=== PATIENT | female | born 1990 | race Caucasian/White ===

== ENCOUNTER 2017-11-06 07:32 | Emergency (ER) | payer OTHER ==
[2017-11-06 08:29] LABS: Absolute Lymphocytes (CBC) 2.7 K/uL (0.7-4.9); Absolute Monocytes 0.4 K/uL (0.1-1.3); Absolute Neutrophil 5.3 K/uL (1.8-8.0); Basophils % 1.2 % (0-1.3); Eosinophils % 2.5 % (0-4.4); Hematocrit 45.4 % (36.0-45.0); MCH 31.6 pg (27.0-35.0); MCV 92.1 fL (80-100); MPV 8.5 fL (7.6-11.3); Monocytes % 4.9 % (3.3-12.3); RBC Red Blood Cell Count 4.93 M/uL (3.86-4.86)
[2017-11-06 08:35] LABS: Protime INR 0.96
--- NOTE | 2017-11-06 08:50 | RAD REPORT ---
EXAM DESCRIPTION: RAD - Chest Single View - 11/06/2017 8:10 am CLINICAL HISTORY: CHEST PAIN Chest pain. COMPARISON: Chest Single View dated 02/21/2017; Chest Single View dated 09/09/2015; CHEST PA AND LAT 2 VIEW dated 04/03/2008; CHEST SINGLE VIEW dated 09/06/2007 FINDINGS: Portable technique limits examination quality. The lungs are grossly clear. The heart is normal in size. No displaced fractures. IMPRESSION: No acute intrathoracic process suspected.
[2017-11-06 09:14] LABS: ALT/SGPT 68 U/L (12-78); AST/SGOT 39 U/L (15-37); Albumin 3.8 g/dL (3.4-5.0); Alkaline Phosphatase 83 U/L (45-117); BUN Blood Urea Nitrogen 12 mg/dL (7-18); Bicarbonate 26 mmol/L (21-32); Bilirubin Direct 0.2 mg/dL (0-0.2); Bilirubin Total 0.8 mg/dL (0.2-1.0); Glucose Level 121 mg/dL (74-106); Magnesium 2.2 mg/dL (1.8-2.4); Protein, Total 7.3 g/dL (6.4-8.2); Sodium Level 138 mmol/L (136-145); Troponin (Emerg Dept Use Only) < 0.02 ng/mL (0.0-0.045)
--- NOTE | 2017-11-06 10:09 | EDPHYS ---
Physician Documentation [facility] Name: Lupe Cleaning Age: 27 yrs Sex: Female : 1990 Arrival Date: 11/06/2017 Time: 07:34 Bed 14 Private MD: out of town, doctor ED Physician Aubrey Jaime HPI: 11/06 09:00 This 27 yrs old Female presents to ER via Ambulatory with complaints of Chest pm1 Pain. 09:00 The patient or guardian reports chest pain that is located primarily in the anterior pm1 aspect of right upper chest. The pain does not radiate. Associated signs and symptoms: Pertinent positives: shortness of breath, Pertinent negatives: abdominal pain, cough, nausea, vomiting. The chest pain is described as sharp. Duration: The patient or guardian reports a single episode, that is still ongoing. Modifying factors: The symptoms are alleviated by nothing. the symptoms are aggravated by deep breath, palpation of area. Severity of pain: in the emergency department the pain is unchanged. The patient has not experienced similar symptoms in the past. The patient has not recently seen a physician. 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 - Social history:: Smoking status: Patient/guardian denies using tobacco. - Ebola Screening: : Patient negative for fever greater than or equal to 101.5 degrees Fahrenheit, and additional compatible Ebola Virus Disease symptoms. ROS: 09:00 Constitutional: Negative for fever, chills, and weight loss, Eyes: Negative for injury, pm1 pain, redness, and discharge, ENT: Negative for injury, pain, and discharge, Neck: Negative for injury, pain, and swelling. 09:00 Abdomen/GI: Negative for abdominal pain, nausea, vomiting, diarrhea, and constipation. 09:00 Back: Negative for injury and pain, : Negative for injury, bleeding, discharge, and swelling, MS/Extremity: Negative for injury and deformity, Skin: Negative for injury, rash, and discoloration, Neuro: Negative for headache, weakness, numbness, tingling, and seizure. 09:00 Cardiovascular: Positive for chest pain, Negative for edema, palpitations. 09:00 Respiratory: Positive for shortness of breath, Negative for wheezing. Exam: 09:00 Constitutional: This is a well developed, well nourished patient who is awake, alert, pm1 and in no acute distress. Head/Face: Normocephalic, atraumatic. Eyes: Pupils equal round and reactive to light, extra-ocular motions intact. Lids and lashes normal. Conjunctiva and sclera are non-icteric and not injected. Cornea within normal limits. Periorbital areas with no swelling, redness, or edema. ENT: Nares patent. No nasal discharge, no septal abnormalities noted. Tympanic membranes are normal and external auditory canals are clear. Oropharynx with no redness, swelling, or masses, exudates, or evidence of obstruction, uvula midline. Mucous membranes moist. Neck: Trachea midline, no thyromegaly or masses palpated, and no cervical lymphadenopathy. Supple, full range of motion without nuchal rigidity, or vertebral point tenderness. No Meningismus. 09:00 Cardiovascular: Regular rate and rhythm with a normal S1 and S2. No gallops, murmurs, or rubs. Normal PMI, no JVD. No pulse deficits. Respiratory: Lungs have equal breath sounds bilaterally, clear to auscultation and percussion. No rales, rhonchi or wheezes noted. No increased work of breathing, no retractions or nasal flaring. Abdomen/GI: Soft, non-tender, with normal bowel sounds. No distension or tympany. No guarding or rebound. No evidence of tenderness throughout. Back: No spinal tenderness. No costovertebral tenderness. Full range of motion. Skin: Warm, dry with normal turgor. Normal color with no rashes, no lesions, and no evidence of cellulitis. MS/ Extremity: Pulses equal, no cyanosis. Neurovascular intact. Full, normal range of motion. 09:00 Chest/axilla: Inspection: normal, Palpation: crepitus, is not appreciated, tenderness, of the anterior aspect of right upper chest, that totally reproduces the patient's complaints, Focal point reproducible chest pain to right upper chest. 09:00 Neuro: Orientation: is normal, Motor: moves all fours. Vital Signs: 07:54 BP 150 / 103; Pulse 90; Resp 18; Temp 97.2; Pulse Ox 100% on R/A; Weight 99.79 kg; ph Height 5 ft. 0 in. (152.40 cm); Pain 5/10; 08:00 BP 141 / 120; Pulse 88; Resp 19; Pulse Ox 98% ; jl7 08:59 BP 137 / 97; Pulse 77; Resp 18; Pulse Ox 97% on R/A; jl7 09:57 BP 143 / 95; Pulse 71; Resp 19; Pulse Ox 99% on R/A; rb1 10:54 BP 127 / 90; Pulse 70; Resp 17; Pulse Ox 99% on R/A; rb1 07:54 Body Mass Index 42.97 (99.79 kg, 152.40 cm) ph MDM: 07:44 Patient medically screened. pm1 10:07 Data reviewed: vital signs. Data interpreted: Pulse oximetry: on room air is 97 %. pm1 Interpretation: normal. Counseling: I had a detailed discussion with the patient and/or guardian regarding: the historical points, exam findings, and any diagnostic results supporting the discharge/admit diagnosis, lab results, radiology results, the need for outpatient follow up, to return to the emergency department if symptoms worsen or persist or if there are any questions or concerns that arise at home. 11/06 07:50 Order name: Basic Metabolic Panel; Complete Time: 09: pm11/06 07:50 Order name: CBC with Diff; Complete Time: 08:54 pm1 11/06 07:50 Order name: LFT's; Complete Time: 09: pm11/06 07:50 Order name: Magnesium; Complete Time: : pm11/06 07:50 Order name: PT-INR; Complete Time: 08:54 pm11/06 07:50 Order name: Ptt, Activated; Complete Time: 08:54 pm11/06 07:50 Order name: Troponin (emerg Dept Use Only); Complete Time: 09: pm11/06 07:50 Order name: XRAY Chest (1 view); Complete Time: 08:54 pm1 11/06 07:50 Order name: EKG; Complete Time: 07:51 pm1 11/06 07:50 Order name: Cardiac monitoring; Complete Time: 08:19 pm1 11/06 07:50 Order name: EKG - Nurse/Tech; Complete Time: 08:17 pm1 11/06 07:50 Order name: IV Saline Lock; Complete Time: 08:17 pm1 11/06 07:50 Order name: Labs collected and sent; Complete Time: 08:17 pm1 11/06 07:50 Order name: O2 Per Protocol; Complete Time: 08:17 pm1 11/06 07:50 Order name: O2 Sat Monitoring; Complete Time: 08:17 pm1 Administered Medications: No medications were administered Disposition: 11/07 07:06 Co-signature as Attending Physician, Aubrey Jaime MD I agree with the assessment and hong plan of care. Disposition: 11/06/17 10:08 Discharged to Home. Impression: Chest pain, unspecified. - Condition is Stable. - Discharge Instructions: Nonspecific Chest Pain. - Medication Reconciliation Form, Thank You Letter, Antibiotic Education, Prescription Opioid Use form. - Follow up: Emergency Department; When: As needed; Reason: Worsening of condition. Follow up: Private Physician; When: 2 - 3 days; Reason: Recheck today's complaints, Continuance of care, Re-evaluation by your physician. - Problem is new. - Symptoms have improved. Signatures: Dispatcher [employer] EDAubrey Seymour MD MD cha Hall, Patricia, RN RN Tonya Dumont RN RN Nawaf Corrales NP CANE WEIGHER pm1 Corrections: (The following items were deleted from the chart) 11/06 10:55 10:08 11/06/2017 10:08 Discharged to Home. Impression: Chest pain, unspecified. rb1 Condition is Stable. Forms are Medication Reconciliation Form, Thank You Letter, Antibiotic Education, Prescription Opioid Use. Follow up: Emergency Department; When: As needed; Reason: Worsening of condition. Follow up: Private Physician; When: 2 - 3 days; Reason: Recheck today's complaints, Continuance of care, Re-evaluation by your physician. Problem is new. Symptoms have improved. pm1
--- NOTE | 2017-11-06 10:09 | ER ---
Nurse's Notes [facility] Name: Lupe Cleaning Age: 27 yrs Sex: Female : 1990 Arrival Date: 11/06/2017 Time: 07:34 Bed 14 Private MD: out of town, doctor Diagnosis: Chest pain, unspecified Presentation: 11/06 07:52 Presenting complaint: Patient states: R sided chest pain that began last night, worse ph w/ movement and deep breathing, reports SOB, denies N/V. Transition of care: patient was not received from another setting of care. Onset of symptoms was November 06, 2017. Risk Assessment: Do you want to hurt yourself or someone else? Patient reports no desire to harm self or others. Initial Sepsis Screen: Does the patient meet any 2 criteria? No. Patient's initial sepsis screen is negative. Does the patient have a suspected source of infection? No. Patient's initial sepsis screen is negative. Care prior to arrival: None. 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 - Social history:: Smoking status: Patient/guardian denies using tobacco. - Ebola Screening: : Patient negative for fever greater than or equal to 101.5 degrees Fahrenheit, and additional compatible Ebola Virus Disease symptoms. Screenin:47 Abuse screen: Denies threats or abuse. Nutritional screening: No deficits noted. rb1 Tuberculosis screening: No symptoms or risk factors identified. Fall Risk None identified. Assessment: 07:47 General: Appears in no apparent distress. comfortable, obese, Behavior is calm, rb1 cooperative, Denies fever. Pain: Complains of pain in anterior aspect of right upper chest Pain does not radiate. Pain currently is 7 out of 10 on a pain scale. Pain began last night at 2300 Aggravated by deep breathing. Neuro: Level of Consciousness is awake, alert, obeys commands, Oriented to person, place, time, situation. Cardiovascular: Capillary refill < 3 seconds is > 3 seconds in bilateral fingers. Respiratory: Airway is patent Respiratory effort is even, unlabored, Respiratory pattern is regular, symmetrical. Respiratory: Reports shortness of breath. GI: No signs and/or symptoms were reported involving the gastrointestinal system. : No signs and/or symptoms were reported regarding the genitourinary system. Derm: Skin is pink, warm \T\ dry. 08:35 Reassessment: Patient appears in no apparent distress at this time. No changes from rb1 previously documented assessment. 09:30 Reassessment: Patient appears in no apparent distress at this time. Patient and/or rb1 family updated on plan of care and expected duration. Pain level reassessed. Patient is alert, oriented x 3, equal unlabored respirations, skin warm/dry/pink. Pt. is on her telephone. 10:30 Reassessment: Patient appears in no apparent distress at this time. No changes from rb1 previously documented assessment. Vital Signs: 07:54 BP 150 / 103; Pulse 90; Resp 18; Temp 97.2; Pulse Ox 100% on R/A; Weight 99.79 kg; ph Height 5 ft. 0 in. (152.40 cm); Pain 5/10; 08:00 BP 141 / 120; Pulse 88; Resp 19; Pulse Ox 98% ; jl7 08:59 BP 137 / 97; Pulse 77; Resp 18; Pulse Ox 97% on R/A; jl7 09:57 BP 143 / 95; Pulse 71; Resp 19; Pulse Ox 99% on R/A; rb1 10:54 BP 127 / 90; Pulse 70; Resp 17; Pulse Ox 99% on R/A; rb1 07:54 Body Mass Index 42.97 (99.79 kg, 152.40 cm) ph ED Course: 07:34 Patient arrived in ED. sb2 07:34 out of town, doctor is Private Physician. sb2 07:44 Nawaf Harris NP is PHCP. pm1 07:44 Aubrey Jaime MD is Attending Physician. pm1 07:47 Patient has correct armband on for positive identification. Placed in gown. Bed in low rb1 position. Call light in reach. Side rails up X 1. monitoring specialist on. Pulse ox on. NIBP on. Warm blanket given. 07:47 Patient maintains SpO2 saturation greater than 95% on room air. rb1 07:50 Tonya Dumont, RN is Primary Nurse. rb1 07:54 Triage completed. ph 07:56 Arm band placed on. ph 08:07 X-ray completed. Portable x-ray completed in exam room. jr1 08:10 XRAY Chest (1 view) In Process Unspecified. EDMS 08:10 Inserted saline lock: 22 gauge in right antecubital area, using aseptic technique. rb1 Blood collected. 10:54 No provider procedures requiring assistance completed. IV discontinued, intact, rb1 bleeding controlled, No redness/swelling at site. Pressure dressing applied. Administered Medications: No medications were administered Outcome: 10:08 Discharge ordered by MD. pm1 10:54 Discharged to home ambulatory. rb1 10:54 Condition: stable 10:54 Discharge instructions given to patient, Instructed on discharge instructions, follow up and referral plans. Demonstrated understanding of instructions, follow-up care, Prescriptions given X none 10:55 Patient left the ED. rb1 Signatures: Dispatcher [employer] EDVT Brigida Sepulveda jr1 Omaira Ahn RN RN Tonya Dumont, RN RN rb1 Nawaf Harris, STEVIE MANAGER [employer] pm1 Marli Odell RN RN jl7 Coty Simons sb2
--- NOTE | 2017-11-06 12:20 | EKG ---
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
== END 2017-11-06 10:55 | disposition home or self-care (01) ==
LOC: ER 07:32
DX: R07.9 Chest pain, unspecified (principal); I10 Essential (primary) hypertension; E11.9 Type 2 diabetes mellitus without complications; E03.9 Hypothyroidism, unspecified
CPT/HCPCS: 36415; 71045; 80048; 80076; 83735; 84484; 85025; 85610; 85730; 93005; 99285

== ENCOUNTER 2018-10-07 13:52 | Emergency (ER) | payer OTHER ==
--- OUTSIDE RECORDS SUMMARY | 2018-10-07 13:53 | XMS REPORT ---
:1990 [facility] Address [address] [place] [address] Dr. Jimenez [address] [place] [id number] Care Team Providers Name Role Phone Unavailable Unavailable Unavailable Problems This patient has no known problems. Allergies, Adverse Reactions, Alerts This patient has no known allergies or adverse reactions. Medications This patient has no known medications.
--- OUTSIDE RECORDS SUMMARY | 2018-10-07 13:53 | XMS REPORT | Summary of Care ---
:1990 Author Organization [facility] Address [address] [place] [id number] Care Team Providers Name Role Phone Esperanza Baldwin MD Primary Care Provider Reason for Visit Reason Comments Refill Request Rx Concern/Question Encounter Details Date Type Department Care Team Description 09/30/2018 Telephone [facility] Internal Esperanza Baldwin, Refill Request; Rx Medicine- LC Concern/Question [facility] [address] [phone] Allergies Active Allergy Reactions Severity Noted Date Comments Diphenhydramine Hcl Swelling, Hypertension 10/21/2014 documented as of this encounter (statuses as of 10/01/2018) Medications Medication Sig Dispensed Refills Start Date End Date Status buPROPion XL Take 1 tablet by 90 tablet 1 02/19/2018 Active (WELLBUTRIN XL) 150 mouth daily. mg 24 hr tablet Insulin [place], Use as directed 2 Box 1 06/11/2018 Active Disposable, (PEN NEEDLE) 32 gauge x 5/32" NdleIndications: Controlled type 2 diabetes mellitus with complication, with long-term current use of insulin documented as of this encounter (statuses as of 10/01/2018) Active Problems Problem Noted Date Morbid obesity with body mass index of 40.0-49.9 12/18/2016 documented as of this encounter (statuses as of 10/01/2018) Immunizations Name Administration Dates Next Due Twinrix (hep a/hep b) 05/03/2018, 12/03/2017, 11/02/2017 05/03/2018 documented as of this encounter Social History Tobacco Use Types Packs/Day Years Used Date Never Smoker Smokeless Tobacco: Never Used Alcohol Use Drinks/Week oz/Week Comments Yes rare Sex Assigned at Date Recorded Not on file Job Start Date Occupation Industry Not on file Not on file Not on file Travel History Travel Start Travel End No recent travel history available. documented as of this encounter Last Filed Vital Signs Not on filedocumented in this encounter Plan of Treatment Date Type Specialty Care Team Description 11/06/2018 Office Visit Gastroenterology Willa Xiao [address] [facility] [id number] [place] [address] 01/13/2019 Office Visit Internal Medicine Esperanza Baldwin MD [address] [place] [phone] Health Maintenance Due Date Last Done Comments PNEUMOCOCCAL 0-64 YEARS COMBINED 02/23/1994 SERIES (1 of 1 - PPSV23) EYE EXAM 02/23/1998 VARICELLA VACCINES (1 of 2 - 13+ 02/23/2001 2-dose series) FOOT EXAM 02/23/2006 DTaP,Tdap,and Td Vaccines (1 - 02/23/2007 Tdap) PAP SMEAR 02/23/2009 INFLUENZA VACCINE 11/03/2018 HgA1C 03/26/2019 09/23/2018, 11/20/2017, 07/25/2017, Additional history exists CREATININE (SERUM) 05/04/2019 05/03/2018, 09/07/2017, 08/31/2017, Additional history exists LDL-C 09/24/2019 09/23/2018, 07/25/2017 URINE MICROALBUMIN 09/24/2019 09/23/2018 documented as of this encounter Results Not on filedocumented in this encounter Insurance Payer Benefit Plan / Subscriber ID Effective Phone Address Type Group Dates [facility] [facility] [id number] 2018-[address]se [address] [employer] [place] [employer] [place] [id number] [employer] [place] [place] [phone] [place], [place] [id number] documented as of this encounter
--- OUTSIDE RECORDS SUMMARY | 2018-10-07 13:54 | XMS REPORT | Summary of Care ---
:1990 Author Organization [facility] Address [address] [place] [address] Care Team Providers Name Role Phone Esperanza Baldwin MD Primary Care Provider Reason for Referral (Routine) Status Reason Specialty Diagnoses / Referred By Referred To Procedures Contact Contact Closed Obstetrics & Diagnoses Type 2 diabetes mellitus without complication, with long-term current use of insulin Chan Joshua, Gynecology Procedures CONSULT/REFERRAL HEALTH PROMOTION SPECIALIST DO Vivi Borges DR [address] [place] [phone] (Routine) Status Reason Specialty Diagnoses / Referred By Contact Referred To Contact Procedures Closed Surgery Diagnoses Type 2 diabetes mellitus without complication, with long-term current use of insulin Chan Joshua, Procedures CONSULT/REFERRAL GENERAL SURGERY DO Vivi Borges DR [address] [place] [phone] (Routine) Status Reason Specialty Diagnoses / Procedures Referred By Contact Referred To Contact Closed Ophthalmology Diagnoses Type 2 diabetes mellitus without complication, with long-term current use of insulin Chan Joshua, Procedures CONSULT/REFERRAL OPHTHALMOLOGY DO Vivi Borges DR [address] [place] [phone] Reason for Visit Reason Comments Follow-up 3 mo fu Encounter Details Date Type Department Care Team Description 09/23/2018 Office Visit [facility] Internal Jony Ibrahim DO [address] [place] [phone] Type 2 diabetes mellitus without complication, with long- term current use of insulin (Primary Dx); Medicine- LC Esperanza Baldwin MD [address] [facility] [phone] Essential hypertension; Multispecialty Ctr Type 2 diabetes mellitus without complication, without long-term current use of insulin; [address] [facility] [place]othy[place], [place] [address] Allergies Active Allergy Reactions Severity Noted Date Comments Diphenhydramine Hcl Swelling, Hypertension 10/21/2014 documented as of this encounter (statuses as of 10/02/2018) Medications Medication Sig Dispensed Refills Start Date End Date Status buPROPion XL Take 1 tablet 90 tablet 1 02/19/2018 Active (WELLBUTRIN XL) 150 by mouth mg 24 hr tablet daily. Insulin [place], Use as 2 Box 1 06/11/2018 Active Disposable, (PEN directed NEEDLE) 32 gauge x 5/32" NdleIndications: Controlled type 2 diabetes mellitus with complication, with long-term current use of insulin lisinopril 10 mg Take 2 tablets 90 tablet 7 10/01/2018 Active tabletIndications: by mouth Essential daily. hypertension metFORMIN 500 mg Take 2 tablets 120 tablet 12 10/01/2018 Active tabletIndications: by mouth 2 Type 2 diabetes (two) times mellitus without daily with complication, meals. without long-term current use of insulin Levothyroxine 100 Take 1 capsule 30 capsule 11 10/01/2018 Active mcg by mouth capsuleIndications: daily. Hypothyroidism, unspecified type SITagliptin 100 mg Take 1 tablet 30 tablet 5 10/01/2018 Active tabletIndications: by mouth Type 2 diabetes daily. mellitus without complication, with long-term current use of insulin Levothyroxine 100 Take 100 mcg 0 Discontinued mcg capsule by mouth 9 daily. metFORMIN 500 mg Take 2 tablets 120 tablet 12 01/30/2017 Discontinued tabletIndications: by mouth 2 9 Type 2 diabetes (two) times mellitus without daily with complication, meals. without long-term current use of insulin liraglutide 0.6 inject 0.6 mg 10 mL 2 07/27/2017 Discontinued mg/0.1 mL (18 mg/3 under the skin 9 mL) injection daily. zolpidem (AMBIEN) Take 1 tablet 60 tablet 0 09/11/2017 Discontinued 10 mg tablet by mouth at 9 bedtime. lisinopril 10 mg Take 2 tablets 90 tablet 7 06/11/2018 Discontinued tabletIndications: by mouth 9 Essential daily. hypertension documented as of this encounter (statuses as of 10/02/2018) Active Problems Problem Noted Date Morbid obesity with body mass index of 40.0-49.9 12/18/2016 documented as of this encounter (statuses as of 10/02/2018) Immunizations Name Administration Dates Next Due Twinrix [...] of this encounter Last Filed Vital Signs Vital Sign Reading Time Taken Comments Blood Pressure 157/94 09/23/2018 1:15 PM CDT Pulse 82 09/23/2018 1:10 PM CDT Temperature 36.8 C (98.3 F) 09/23/2018 1:10 PM CDT Respiratory Rate 18 09/23/2018 1:10 PM CDT Oxygen Saturation 98% 09/23/2018 1:10 PM CDT Inhaled Oxygen Concentration - - Weight 102.3 kg (225 lb 9.6 oz) 09/23/2018 1:10 PM CDT Height - - Body Mass Index 44.06 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 Checking sugars at home, high readings inthe 300s bc not taking her victoza, does not like the way it made her feel (weakness). Still taking the metformin Obesity - patient expresses severe distress regarding weight. States she has "tried everything" including various diets, juicing, more exercise and has only lost a few pounds at best. She is requestingreferral to bariatric surgery. Medications: Current Outpatient Medications Medication Sig Insulin [place], Disposable, (PEN NEEDLE) 32 gauge x 5/32" Ndle Use as directed lisinopril 10 mg tablet Take 2 tablets by mouth daily. buPROPion XL (WELLBUTRIN XL) 150 mg 24 hr tablet Take 1 tablet by mouth daily. zolpidem (AMBIEN) 10 mg tablet Take 1 tablet by mouth at bedtime. liraglutide 0.6 mg/0.1 mL (18 mg/3 mL) injection inject 0.6 mg under the skin daily. metFORMIN 500 mg tablet Take 2 tablets by mouth 2 (two) times daily with meals. Levothyroxine 100 mcg capsule Take 100 mcg by mouth daily. PMHx: Past Medical History: Diagnosis Date Cirrhosis Diabetes mellitus Hyperlipidemia Hypertension well controlled Sleep apnea Thyroid disease ROS: Constitutional: no change in weight CV: denies CP, chest pressure Resp: denies SOB +PHILLIPS GI: denies abdominal pain, n/v, diarrhea, or constipation : denies dysuria, hematuria PE: Vitals: 09/23/18 1310 09/23/18 1315 BP: (!) 159/96 (!) 157/94 Pulse: 82 Resp: 18 Temp: 36.8 C (98.3 F) TempSrc: Tympanic SpO2: 98% Weight: 225 lb 9.6 oz (102.3 kg) General: patient alert and in no acute distress. obese Eyes: PERRL and EOMI Neck: supple Cardiovascular: Heart regular, rate, rhythm, no murmurs; no edema Respiratory: clear to auscultation bilaterally, no respiratory distress Abdomen: abdomen soft, non-tender, non-distended, +BS Skin: intact and warm, dry Neuro: no focal deficits Psych: cooperative and mood/affect normal Sensory exam of the foot is normal. Monofilament exam with sensation Right: 5/ 5. Lesions absent Ulcers Absent Peripheral pulses present 2+. Chart Review (Labs / Radiology): Reviewed Assessment / Plan: Lupe Cleaning is a 28 year old female presents to clinic today for: Type 2 diabetes mellitus without complication, with long-term current use of insulin (primary encounter diagnosis) Comment: patient meets criteria for bariatric surgery, would like to discuss w surgeon Plan: GLYCOSYLATED HEMOGLOBIN (A1C), LIPID PANEL (44891)(TOTAL CHOLESTEROL, TRIGLYCERIDES, HDL), MICROALBUMIN URINE, CONSULT/REFERRAL OPHTHALMOLOGY, CONSULT/REFERRAL GENERAL SURGERY, CONSULT/REFERRAL HEALTH PROMOTION SPECIALIST, Continue metformin D/c victoza Start januvia Essential hypertension Comment: patient to check BP at home and bring log Plan: lisinopril 10 mg tablet Hypothyroidism, unspecified type Comment: recheck TSH at [facility] Plan: Levothyroxine 100 mcg capsule Follow-up: 3 months Esperanza Baldwin MD 09/23/2018 1:40 PM Phoebe Todd - 09/23/2018 1:30 PM CDT Lupe Cleaning is a 28 year old female seen for a follow up visit; patient has Patient Active Problem List Diagnosis Morbid obesity with body mass index of 40.0-49.9 Chief Complaint Patient presents with Follow-up 3 mo fu Level of pain 6/10 Location of pain back Appearance: healthy,alert,cooperative. This patient is accompanied in the office by her self. Medications and allergies reviewed with patient by provider. Phoebe Gaffney 09/23/2018 1:10 PM documented in this encounter Plan of Treatment Date Type Specialty Care Team Description 11/06/2018 Office Visit Gastroenterology Willa Xiao [address] [facility] [address] [place] [address] [phone] 01/13/2019 Office Visit Internal Medicine Esperanza Baldwin MD [address] [place] [phone] Health Maintenance Due Date Last Done Comments [...] 09/23/2018 documented as of this encounter Results MICROALBUMIN URINE (09/23/2018 2:26 PM CDT) CREAT U 153.1 mg/dL [facility] MICROALB U 9 0 - 45 ug/mL [facility] MICROAL/CR 664 0-3,500 ug/mmol [facility] creatinine SERVICES Specimen Urine - URINE, CLEAN CATCH Performing Organization Address City/[facility]/Zipcode Phone Number [facility] CLIA: [id number], [address] [place] [address] [facility] LIPID PANEL (47892)(TOTAL CHOLESTEROL, TRIGLYCERIDES, HDL) (09/23/2018 2:25 PM CDT) CHOL 203 (H) 120 - 200 [facility] mg/dL [facility] HDL 27 (L) >50 mg/dL [facility] HDLC RATIO 7.5 (H) <=4.5 [facility] TRIG 405 (H) 30 - 170 mg/dL [facility] LDL CHOL Comment: Unable to <=160 mg/dL [facility] calculate LDL due to [facility] elevated triglyceride [facility] level greater than 400 mg/dL. VLDL 81 (H) 5 - 60 mg/dL [facility] Specimen Blood - ARM, LEFT Performing Organization Address City/State/Zipcode Phone Number [facility] CLIA: [id number], [address] [place] [address] [facility] HEMOGLOBIN (A1C) (09/23/2018 2:25 PM CDT) HGB A1C 8.7 (H) 4.0 - 6.0 % NGSP [facility] Specimen Blood - ARM, LEFT Performing Organization Address City/State/Zipcode Phone Number [facility] CLIA: [id number], [address] [place] [address] SERVICES-[facility] documented in this encounter Visit Diagnoses Diagnosis Type 2 diabetes mellitus without complication, with long-term current use of insulin - Primary Essential hypertension Unspecified essential hypertension Type 2 diabetes mellitus without complication, without long-term current use of insulin Hypothyroidism, unspecified type documented in this encounter Insurance Payer Benefit Plan / Subscriber ID Effective Phone Address Type Group Dates [facility] [id number] 2018-Akhil [address] [facility] CHILDRENS HEALTH PLAN MOM nt [id number] HEALTH PLAN [facility] [phone] [place], [place] [address] documented as of this encounter
--- OUTSIDE RECORDS SUMMARY | 2018-10-07 13:54 | XMS REPORT | Summary of Care ---
:[address] [facility] Address [address] [place] [address] Care Team Providers Name Role Phone Esperanza Baldwin MD Primary Care Provider Reason for Visit Reason Comments Rx Concern/Question Encounter Details Date Type Department Care Team Description 10/03/2018 Telephone [facility] Internal Esperanza Baldwin MD Rx Concern/Question Medicine- Multispecialty [address] [place] [phone] [place] [phone] Allergies Active Allergy Reactions Severity Noted Date Comments Diphenhydramine Hcl Swelling, Hypertension 10/21/2014 documented as of this encounter (statuses as of 10/03/2018) Medications Medication Sig Dispensed Refills Start Date End Date Status buPROPion XL Take 1 tablet by 90 tablet 1 02/19/2018 Active (WELLBUTRIN XL) 150 mg mouth daily. 24 hr tablet Insulin [place], Use as directed 2 Box 1 06/11/2018 Active Disposable, (PEN NEEDLE) 32 gauge x 5/32" NdleIndications: Controlled type 2 diabetes mellitus with complication, with long-term current use of insulin lisinopril 10 mg Take 2 tablets by 90 tablet 7 10/01/2018 Active tabletIndications: mouth daily. Essential hypertension metFORMIN 500 mg Take 2 tablets by 120 tablet 12 10/01/2018 Active tabletIndications: mouth 2 (two) Type 2 diabetes times daily with mellitus without meals. complication, without long-term current use of insulin Levothyroxine 100 mcg Take 1 capsule by 30 capsule 11 10/01/2018 Active capsuleIndications: mouth daily. Hypothyroidism, unspecified type SITagliptin 100 mg Take 1 tablet by 30 tablet 5 10/01/2018 Active tabletIndications: mouth daily. Type 2 diabetes mellitus without complication, with long-term current use of insulin documented as of this encounter (statuses as of 10/03/2018) Active Problems Problem Noted Date Morbid obesity with body mass index of 40.0-49.9 12/18/2016 documented as of this encounter (statuses as of 10/03/2018) Immunizations Name Administration Dates Next Due Twinrix [...] 11/06/2018 Office Visit Gastroenterology Willa Xiao [address] [facility] [id number] [place], [place] [phone] 01/13/2019 Office Visit Internal Medicine Esperanza Baldwin MD [address] [place] [phone] Health Maintenance Due Date Last Done Comments PNEUMOCOCCAL 0-64 YEARS COMBINED 02/23/1994 SERIES (1 of 1 - PPSV23) EYE EXAM 02/23/1998 VARICELLA VACCINES (1 of 2 - 13+ 02/23/2001 2-dose series) DTaP,Tdap,and Td Vaccines (1 - 02/23/2007 Tdap) PAP SMEAR 02/23/2009 INFLUENZA VACCINE 11/03/2018 HgA1C 03/26/2019 09/23/2018, 11/20/2017, 07/25/2017, Additional history exists CREATININE (SERUM) 05/04/2019 05/03/2018, 09/07/2017, 08/31/2017, Additional history exists FOOT EXAM 09/24/2019 09/23/2018, 09/23/2018 LDL-C 09/24/2019 09/23/2018, 07/25/2017 URINE MICROALBUMIN 09/24/2019 09/23/2018 documented as of this encounter Results Not on filedocumented in this encounter Insurance Payer Benefit Plan / Subscriber ID Effective Phone Address Type Group Dates [address] [facility] [id number] 2018-Akhil [address] CH[address] Chantelle [facility] HEALTH PLAN MOM nt [id number] HEALTH PLAN [phone] [place], [place] [address] documented as of this encounter
--- OUTSIDE RECORDS SUMMARY | 2018-10-07 13:54 | XMS REPORT | Summary of Care ---
:1990 Author Organization [facility] Address [address] [place] [address] Care Team Providers Name Role Phone Esperanza Baldwin MD Primary Care Provider Reason for Visit Reason Comments Rx Concern/Question Assessment Encounter Details Date Type Department Care Team Description 10/07/2018 Telephone [facility] Internal Esperanza Baldwin, Rx Concern/ Question; Medicine- LC Assessment Multispecialty Ctr [address] [phone] Allergies Active Allergy Reactions Severity Noted Date Comments Diphenhydramine Hcl Swelling, Hypertension 10/21/2014 documented as of this encounter (statuses as of 10/07/2018) Medications Medication Sig Dispensed Refills Start Date End Date Status buPROPion XL Take 1 tablet by 90 tablet 1 02/19/2018 Active (WELLBUTRIN XL) 150 mg mouth daily. 24 hr tablet Insulin [place], Use as directed 2 Box 1 06/11/2018 [...] as of this encounter (statuses as of 10/07/2018) Active Problems Problem Noted Date Morbid obesity with body mass index of 40.0-49.9 12/18/2016 documented as of this encounter (statuses as of 10/07/2018) Immunizations Name Administration Dates Next Due Twinrix [...] 11/06/2018 Office Visit Gastroenterology Willa Xiao 301 [facility] [id number] [place], [place] [phone] 01/13/2019 Office Visit Internal Medicine Esperanza Baldwin MD [address] [place] [phone] Health Maintenance Due Date Last Done Comments [...] Effective Phone Address Type Group Dates CHIP [address] [facility] [id number] 2018-Akhil [address] CHIP [facility] HEALTH PLAN MOM nt [phone] HEALTH PLAN [phone] [place], [place] [address] documented as of this encounter
--- OUTSIDE RECORDS SUMMARY | 2018-10-07 13:54 | XMS REPORT | Summary of Care ---
:1990 Author Organization [facility] Address [address] [place] [address] Care Team Providers Name Role Phone Esperanza Baldwin MD Primary Care Provider Reason for Referral (Routine) Status Reason Specialty Diagnoses / Referred By Referred To Procedures Contact Contact Closed Obstetrics & Diagnoses Type 2 diabetes mellitus without complication, with long-term current use of insulin Chan Joshua, Gynecology Procedures CONSULT/REFERRAL BEET WORKER DO Vivi Borges DR [address] [place] [phone] (Routine) Status Reason Specialty Diagnoses / Referred By Contact Referred To Contact Procedures Closed Surgery Diagnoses Type 2 diabetes mellitus without complication, with long-term current use of insulin Chan Joshua, Procedures CONSULT/REFERRAL GENERAL SURGERY DO Vivi Borges DR [address] [place] [phone] (Routine) Status Reason Specialty Diagnoses / Procedures Referred By Contact Referred To Contact Closed Ophthalmology Diagnoses Type 2 diabetes mellitus without complication, with long-term current use of insulin Chan Joshua, Procedures CONSULT/REFERRAL OPHTHALMOLOGY DO Vivi Borges DR [address] [place] [phone] Reason for Visit Reason Comments Follow-up 3 mo fu Encounter Details Date Type Department Care Team Description 09/23/2018 Office Visit [facility] Internal Jony Ibrahim DO [address] [place] [phone] Type 2 diabetes mellitus without complication, with long- term current use of insulin (Primary Dx); Medicine- LC Esperanza Baldwin MD [address] [facility] [place] [phone] Essential hypertension; Multispecialty Ctr Type 2 diabetes mellitus without complication, without long-term current use of insulin; [address] [facility] Hypothyroidism, [place] [address] Allergies Active Allergy Reactions Severity Noted Date Comments Diphenhydramine Hcl Swelling, Hypertension 10/21/2014 documented as of this encounter (statuses as of 10/02/2018) Medications Medication Sig Dispensed Refills Start Date End Date Status buPROPion XL Take 1 tablet 90 tablet 1 02/19/2018 Active (WELLBUTRIN XL) 150 by mouth mg 24 hr tablet daily. 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 Progress Notes Esperanza [...] Medications: Current Outpatient Medications Medication Sig Insulin [place], Disposable, (PEN NEEDLE) 32 gauge x 5/32" [...] surgeon Plan: GLYCOSYLATED HEMOGLOBIN (A1C), LIPID PANEL (29425)(TOTAL CHOLESTEROL, TRIGLYCERIDES, HDL), MICROALBUMIN URINE, CONSULT/REFERRAL OPHTHALMOLOGY, CONSULT/REFERRAL GENERAL SURGERY, CONSULT/REFERRAL BEET WORKER, Continue metformin D/c victoza Start januvia Essential [...] 11/06/2018 Office Visit Gastroenterology Willa Xiao 301 [facility] [id number] [place] [address] [phone] 01/13/2019 Office Visit Internal Medicine Esperanza Baldwin MD [address] [place] [phone] Health Maintenance Due Date Last Done Comments [...] 2:26 PM CDT) CREAT U 153.1 mg/dL [facility] MICROALB U 9 0 - 45 ug/mL [facility] MICROAL/CR 664 0-3,500 ug/mmol [facility] creatinine SERVICES Specimen Urine - URINE, CLEAN CATCH Performing Organization Address City/[facility]/Zipcode Phone Number [facility] CLIA: [id number], [address] [place] [address] [facility] LIPID PANEL (02066)(TOTAL CHOLESTEROL, TRIGLYCERIDES, HDL) (09/23/2018 2:25 PM CDT) CHOL 203 (H) 120 - 200 [facility] mg/dL [facility] HDL 27 (L) >50 mg/dL [facility] HDLC RATIO 7.5 (H) <=4.5 [facility] TRIG 405 (H) 30 - 170 mg/dL [facility] LDL CHOL Comment: Unable to <=160 mg/dL [facility] calculate LDL due to [facility] elevated triglyceride [facility] level greater than 400 mg/dL. VLDL 81 (H) 5 - 60 mg/dL [facility] Specimen Blood - ARM, LEFT Performing Organization Address City/State/Zipcode Phone Number [facility] CLIA: [id number], [address] [place] [address] [facility] HEMOGLOBIN (A1C) (09/23/2018 2:25 PM CDT) HGB A1C 8.7 (H) 4.0 - 6.0 % NGSP [facility] Specimen Blood - ARM, LEFT Performing Organization Address City/State/Zipcode Phone Number [facility] CLIA: [id number], [address] [place] [address] SERVICES-[facility] documented in this encounter Visit Diagnoses Diagnosis Type 2 diabetes mellitus without complication, with long-term current use of insulin - Primary Essential hypertension Unspecified essential hypertension Type 2 diabetes mellitus without complication, without long-term current use of insulin Hypothyroidism, unspecified type documented in this encounter Insurance Payer Benefit Plan / Subscriber ID Effective Phone Address Type Group Dates [facility] [id number] 2018-Akhil [address] [facility] CHILDRENS HEALTH PLAN MOM nt [id number] HEALTH PLAN [facility] [address] [place], [place] [address] documented as of this encounter
--- OUTSIDE RECORDS SUMMARY | 2018-10-07 13:54 | XMS REPORT | Summary of Care ---
:1990 Author Organization [facility] Address [address] [place] [address] Care Team Providers Name Role Phone Esperanza Baldwin MD Primary Care Provider Reason for Visit Reason Comments Rx Concern/Question Encounter Details Date Type Department Care Team Description 10/03/2018 Telephone [facility] Internal Esperanza Baldwin MD Rx Concern/Question Medicine- Multispecialty [address] [place] [phone] [place] [phone] Allergies Active Allergy Reactions Severity Noted Date Comments Diphenhydramine Hcl Swelling, Hypertension 10/21/2014 documented as of this encounter (statuses as of 10/07/2018) Medications Medication Sig Dispensed Refills Start Date End Date Status buPROPion XL Take 1 tablet by 90 tablet 1 02/19/2018 Active (WELLBUTRIN XL) 150 mg mouth daily. 24 hr tablet Insulin [place], Use as directed 2 Box 1 06/11/2018 [...] 11/06/2018 Office Visit Gastroenterology Willa Xiao 301 [facility] [id number] [place], [place] [phone] 01/13/2019 Office Visit Internal Medicine Esperanza Baldwin MD [address] [place] [phone] Health Maintenance Due Date Last Done Comments [...] Phone Address Type Group Dates [facility] [facility] [id number] 2018-Akhil Christie [address] CH[address] Ch[address]elle [facility] HEALTH PLAN MOM nt [id number] HEALTH PLAN [address] [place], [place] [address] documented as of this encounter
[2018-10-07] MEDS ORDERED: HYDROCODONE/APAP 5/325 MG TAB ONE (16:59)
--- NOTE | 2018-10-07 17:00 | RAD REPORT ---
EXAM DESCRIPTION: RAD - Hip Right 2 View - 10/07/2018 4:30 pm CLINICAL HISTORY: Right hip pain FINDINGS: No fracture or dislocation is seen. Mild osteoarthritis involves the right hip If patient continues have symptoms to suggest an occult fracture then MRI would be recommended
--- NOTE | 2018-10-07 17:08 | ER ---
Nurse's Notes [facility] Name: Lupe Yeager Age: 28 yrs Sex: Female : 1990 Arrival Date: 10/07/2018 Time: 13:55 Bed Treatment Private MD: Diagnosis: Pain in right hip Presentation: 10/07 14:10 Presenting complaint: Right hip and groin pain after fall from standing 2 days ago. hb Denies other injuries. Transition of care: patient was not received from another setting of care. Onset of symptoms was October 05, 2018. Risk Assessment: Do you want to hurt yourself or someone else? Patient reports no desire to harm self or others. Initial Sepsis Screen: Does the patient meet any 2 criteria? No. Patient's initial sepsis screen is negative. Does the patient have a suspected source of infection? No. Patient's initial sepsis screen is negative. Care prior to arrival: None. 14:10 Method Of Arrival: Ambulatory hb 14:10 Acuity: NORMA 4 hb Historical: - Allergies: 14:11 Benadryl; hb - Immunization history:: Adult Immunizations up to date. - Ebola Screening: : Patient denies travel to an Ebola-affected area in the 21 days before illness onset. Screenin:53 Abuse screen: Denies threats or abuse. Denies injuries from another. Nutritional aj1 screening: No deficits noted. Tuberculosis screening: No symptoms or risk factors identified. 18:13 Fall Risk Fall in past 12 months (25 points). No secondary diagnosis (0 pts). No IV (0 aj1 pts). Ambulatory Aid- Crutches/Cane/Walker (15 pts). Gait- Normal/Bed Rest/Wheelchair (0 pts) Mental Status- Oriented to own ability (0 pts). Total Mccarty Fall Scale indicates Low Risk Score (25-44 pts). Family Present and informed to notify staff if they need to leave bedside. Assessment: 14:47 General: Appears in no apparent distress. uncomfortable, Behavior is calm, cooperative, aj1 appropriate for age. Pain: Complains of pain in right hip Pain does not radiate. Pain currently is 8 out of 10 on a pain scale. Neuro: Level of Consciousness is awake, alert, obeys commands, Oriented to person, place, time, situation. Cardiovascular: Patient's skin is warm and dry. Respiratory: Airway is patent Respiratory effort is even, unlabored, Respiratory pattern is regular, symmetrical. GI: No signs and/or symptoms were reported involving the gastrointestinal system. : No signs and/or symptoms were reported regarding the genitourinary system. EENT: No signs and/or symptoms were reported regarding the EENT system. Derm: No signs and/or symptoms reported regarding the dermatologic system. Skin is pink, warm \T\ dry. normal. Musculoskeletal: Range of motion: limited in right hip. 15:45 Reassessment: Patient appears in no apparent distress at this time. No changes from aj1 previously documented assessment. Patient and/or family updated on plan of care and expected duration. Pain level reassessed. Patient is alert, oriented x 3, equal unlabored respirations, skin warm/dry/pink. 16:45 Reassessment: Patient appears in no apparent distress at this time. No changes from aj1 previously documented assessment. Patient and/or family updated on plan of care and expected duration. Pain level reassessed. Patient is alert, oriented x 3, equal unlabored respirations, skin warm/dry/pink. 17:15 Reassessment: Discharge pending getting crutches of correct height for patient. aj1 18:12 Reassessment: Patient appears in no apparent distress at this time. No changes from aj1 previously documented assessment. Patient and/or family updated on plan of care and expected duration. Pain level reassessed. Patient is alert, oriented x 3, equal unlabored respirations, skin warm/dry/pink. Vital Signs: 14:11 BP 165 / 85; Pulse 85; Resp 16; Temp 97.8; Pulse Ox 100% on R/A; Weight 99.79 kg; hb Height 4 ft. 11 in. (149.86 cm); Pain 8/10; 14:11 Body Mass Index 44.43 (99.79 kg, 149.86 cm) ED Course: 13:55 Patient arrived in ED. mr 14:11 Triage completed. hb 14:11 Arm band placed on. hb 14:47 Kendra Draper, RN is Primary Nurse. aj1 14:50 Lashay Rivera [facility]-C [facility]. kb 14:50 Epi Teran MD is Attending Physician. kb 14:53 Patient has correct armband on for positive identification. Bed in low position. Call aj1 light in reach. 14:53 No provider procedures requiring assistance completed. aj1 16:32 Hip Right 2 View XRAY In Process Unspecified. EDMS 18:12 Patient did not have IV access during this emergency room visit. Crutch training done. aj1 Administered Medications: 17:04 Drug: [place] (7.5 mg-325 mg) 1 tabs Route: PO; aj1 18:10 Follow up: Response: No adverse reaction; Pain is decreased aj1 Outcome: 17:07 Discharge ordered by . jordan 18:13 Discharged to home with crutches. aj1 18:13 Condition: good 18:13 Discharge instructions given to patient, Instructed on discharge instructions, follow up and referral plans. medication usage, Demonstrated understanding of instructions, follow-up care, medications, Prescriptions given X 2. 18:14 Patient left the ED. aj1 Signatures: Dispatcher [employer] EDMS Lashay Rivera, MILL MACHINIST-C KURTIS-Kendra Lucas, CHRISTIANO RN aj1 Monet Arredondo Heather, CHRISTIANO RN
--- NOTE | 2018-10-07 17:08 | EDPHYS ---
Physician Documentation [facility] Name: Lupe Yeager Age: 28 yrs Sex: Female : 1990 Arrival Date: 10/07/2018 Time: 13:55 Bed Treatment Private MD: ED Physician Epi Teran HPI: 10/07 16:43 This 28 yrs old Female presents to ER via Ambulatory with complaints of Hip kb Pain. 16:43 The patient or guardian reports pain. that occurred outdoors, sustained from a fall, kb while walking, There is no obvious deformity, The patient is able to self ambulate. The patient is able to bear their full body weight. The patient's discomfort radiates to the right femoral area. The patient was discovered at or immediately after the incident. The complaints affect the right hip. Onset: The symptoms/episode began/occurred 2 day(s) ago. Modifying factors: The symptoms are alleviated by nothing, the symptoms are aggravated by external rotation, weight bearing. Associated signs and symptoms: Loss of consciousness: the patient experienced no loss of consciousness, Pertinent positives: None. Pertinent negatives: None. Severity of symptoms: At their worst the symptoms were mild, moderate, in the emergency department the symptoms are unchanged. The patient has not experienced similar symptoms in the past. The patient has not recently seen a physician. Pt states she was stepping over a bucket and her foot went inside instead of over causing her to trip. States she landed on right hip. Has been able to ambulate, but has pain when doing so. Historical: - Allergies: 14:11 Benadryl; hb - Immunization history:: Adult Immunizations up to date. - Ebola Screening: : Patient denies travel to an Ebola-affected area in the 21 days before illness onset. ROS: 18:09 Constitutional: Negative for fever, chills, and weight loss, Cardiovascular: Negative kb for chest pain, palpitations, and edema, Respiratory: Negative for shortness of breath, cough, wheezing, and pleuritic chest pain, Abdomen/GI: Negative for abdominal pain, nausea, vomiting, diarrhea, and constipation, Back: Negative for injury and pain, Skin: Negative for injury, rash, and discoloration, Neuro: Negative for headache, weakness, numbness, tingling, and seizure. 18:09 MS/extremity: Positive for pain, tenderness, of the right hip. Exam: 18:10 Constitutional: This is a well developed, well nourished patient who is awake, alert, kb and in no acute distress. Head/Face: Normocephalic, atraumatic. ENT: Nares patent. No nasal discharge, no septal abnormalities noted. Tympanic membranes are normal and external auditory canals are clear. Oropharynx with no redness, swelling, or masses, exudates, or evidence of obstruction, uvula midline. Mucous membranes moist. Neck: Trachea midline, no thyromegaly or masses palpated, and no cervical lymphadenopathy. Supple, full range of motion without nuchal rigidity, or vertebral point tenderness. No Meningismus. Chest/axilla: Normal chest wall appearance and motion. Nontender with no deformity. No lesions are appreciated. Cardiovascular: Regular rate and rhythm with a normal S1 and S2. No gallops, murmurs, or rubs. Normal PMI, no JVD. No pulse deficits. Respiratory: Lungs have equal breath sounds bilaterally, clear to auscultation and percussion. No rales, rhonchi or wheezes noted. No increased work of breathing, no retractions or nasal flaring. Abdomen/GI: Soft, non-tender, with normal bowel sounds. No distension or tympany. No guarding or rebound. No evidence of tenderness throughout. Back: No spinal tenderness. No costovertebral tenderness. Full range of motion. Skin: Warm, dry with normal turgor. Normal color with no rashes, no lesions, and no evidence of cellulitis. Neuro: Awake and alert, GCS 15, oriented to person, place, time, and situation. Cranial nerves II-XII grossly intact. Motor strength 5/5 in all extremities. Sensory grossly intact. Cerebellar exam normal. Normal gait. 18:10 Musculoskeletal/extremity: Extremities: grossly normal except: noted in the right hip: pain, tenderness, ROM: intact in all extremities, Circulation is intact in all extremities. Sensation intact. Weight bearing: able to fully bear weight. Vital Signs: 14:11 BP 165 / 85; Pulse 85; Resp 16; Temp 97.8; Pulse Ox 100% on R/A; Weight 99.79 kg; hb Height 4 ft. 11 in. (149.86 cm); Pain 8/10; 14:11 Body Mass Index 44.43 (99.79 kg, 149.86 cm) MDM: 14:50 Patient medically screened. kb 16:42 Data reviewed: vital signs, nurses notes. Data interpreted: Pulse oximetry: on room air kb is 100 %. Interpretation: normal. ED course: awaiting radiologist's report. 17:04 Counseling: I had a detailed discussion with the patient and/or guardian regarding: the kb historical points, exam findings, and any diagnostic results supporting the discharge/admit diagnosis, radiology results, the need for outpatient follow up, a family practitioner, to return to the emergency department if symptoms worsen or persist or if there are any questions or concerns that arise at home. 10/07 14:58 Order name: Hip Right 2 View XRAY; Complete Time: 17:04 kb 10/07 17:08 Order name: Crutches; Complete Time: 18:10 kb Administered Medications: 17:04 Drug: [place] (7.5 mg-325 mg) 1 tabs Route: PO; aj1 18:10 Follow up: Response: No adverse reaction; Pain is decreased aj1 Disposition: 10/08 08:01 Co-signature as Attending Physician, Epi Teran MD I agree with the assessment and me plan of care. Disposition: 10/07/18 17:07 Discharged to Home. Impression: Pain in right hip. - Condition is Stable. - Discharge Instructions: Hip Pain. - Prescriptions for Cyclobenzaprine 10 mg Oral Tablet - take 1 tablet by ORAL route every 8 hours As needed; 21 tablet. Diclofenac Sodium 75 mg Oral Tablet, Delayed Release (E.C.) - take 1 tablet by ORAL route 2 times per day As needed; 30 tablet. - Medication Reconciliation Form, Thank You Letter, Antibiotic Education, Prescription Opioid Use form. - Follow up: Emergency Department; When: As needed; Reason: Worsening of condition. Follow up: Private Physician; When: 2 - 3 days; Reason: Recheck today's complaints, Continuance of care, Re-evaluation by your physician. Signatures: Dispatcher [employer] Lashay Moreno, TABITHA HULL-Kendra Lucas RN RN aj1 Shirlene Wiggins RN RN hb Appiah, William, MD MD wa Corrections: (The following items were deleted from the chart) 10/07 18:14 17:07 10/07/2018 17:07 Discharged to Home. Impression: Pain in right hip. Condition is aj1 Stable. Forms are Medication Reconciliation Form, Thank You Letter, Antibiotic Education, Prescription Opioid Use. Follow up: Emergency Department; When: As needed; Reason: Worsening of condition. Follow up: Private Physician; When: 2 - 3 days; Reason: Recheck today's complaints, Continuance of care, Re-evaluation by your physician. kb
== END 2018-10-07 18:14 | disposition home or self-care (01) ==
LOC: ER 13:52
DX: M25.551 Pain in right hip (principal); W18.09XA Striking against other object with subsequent fall, initial encounter; Y93.89 Activity, other specified; Y92.89 Other specified places as the place of occurrence of the external cause; Z88.8 Allergy status to other drugs, medicaments and biological substances
CPT/HCPCS: 99284

== ENCOUNTER 2019-10-23 18:26 | Emergency (ER) | payer OTHER ==
[2019-10-23 19:12] LABS: Absolute Lymphocytes (CBC) 4.1 K/uL (0.7-4.9); Basophils % 1.3 % (0-1.3); Hematocrit 44.4 % (36.0-45.0); Lymphocytes % 31.6 % (15.3-44.8); MPV 8.7 fL (7.6-11.3); RBC Red Blood Cell Count 4.86 M/uL (3.86-4.86)
[2019-10-23 19:26] LABS: Protime INR 0.97
[2019-10-23 19:34] LABS: ALT/SGPT 49 U/L (12-78); AST/SGOT 35 U/L (15-37); Albumin 3.8 g/dL (3.4-5.0); Alkaline Phosphatase 84 U/L (45-117); BUN Blood Urea Nitrogen 8 mg/dL (7-18); Bicarbonate 25 mmol/L (21-32); Bilirubin Direct 0.3 mg/dL (0-0.2); Bilirubin Total 1.6 mg/dL (0.2-1.0); Glucose Level 174 mg/dL (74-106); Magnesium 2.3 mg/dL (1.8-2.4); NT PRO-BNP 19 pg/mL (<125); Potassium 3.6 mmol/L (3.5-5.1); Protein, Total 7.4 g/dL (6.4-8.2); Sodium Level 138 mmol/L (136-145); Troponin (Emerg Dept Use Only) < 0.02 ng/mL (0.0-0.045)
--- NOTE | 2019-10-23 19:38 | RAD REPORT ---
EXAM DESCRIPTION: RAD - Chest Single View - 10/23/2019 7:06 pm CLINICAL HISTORY: CHEST PAIN COMPARISON: AP chest November 2017 TECHNIQUE: AP portable chest image was obtained 10/23/2019 7:06 pm . FINDINGS: Lung volumes are low. No peripheral mass consolidation. Interstitial markings are accentua merle by the low lung volumes. Heart size is prominent, accentuated by portable technique and low lung volumes. Vasculature within normal limits. No measurable pleural effusion and no pneumothorax. No acu te bony abnormality seen. No acute aortic findings suspected. IMPRESSION: No focal mass or consolidation. Low lung volumes accentuate lung markings.
--- NOTE | 2019-10-23 19:54 | EDPHYS ---
Physician Documentation [facility] Name: Lupe Yeager Age: 29 yrs Sex: Female : 1990 Arrival Date: 10/23/2019 Time: 18:30 Bed 14 Private MD: ED Physician Aubrey Jaime HPI: 10/22 18:37 This 29 yrs old Female presents to ER via Ambulatory with complaints of Chest jmm Pain. 18:37 The patient or guardian reports chest pain that is located primarily in the anterior [facility] chest wall. The pain does not radiate. Associated signs and symptoms: Pertinent positives:. The chest pain is described as sharp. Duration: The patient or guardian reports a single episode. This is a 29 year old female with a history of DM, HTN, hypothyroidism that presents to the ED with complaints of chest pain which has been ongoing for the past 4 days. Worsened with deep inspiration. Denies history of CAD. 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 - Social history:: Smoking status: unknown. ROS: 18:37 Constitutional: Negative for fever, chills, and weight loss. jmm 18:37 Respiratory: Negative for shortness of breath, cough, wheezing, and pleuritic chest pain, Abdomen/GI: Negative for abdominal pain, nausea, vomiting, diarrhea, and constipation. 18:37 Cardiovascular: Positive for chest pain. 18:37 All other systems are negative. Exam: 18:37 Constitutional: This is a well developed, well nourished patient who is awake, alert, jmm and in no acute distress. Head/Face: atraumatic. Eyes: EOMI, no conjunctival erythema appreciated ENT: Moist Mucus Membranes Neck: Trachea midline, Supple Cardiovascular: Regular rate and rhythm. No edema appreciated 18:37 Respiratory: Normal respirations, no respiratory distress appreciated Abdomen/GI: Non distended, soft Back: Normal ROM Skin: General appearance color normal MS/ Extremity: Moves all extremities, no obvious deformities appreciated, no edema noted to the lower extremities Neuro: Awake and alert, normal gait Psych: Behavior is normal, Mood is normal, Patient is cooperative and pleasant 18:37 Chest/axilla: Palpation: tenderness, that is moderate, that totally reproduces the patient's complaints. 19:34 ECG was reviewed by the Attending Physician. [facility] Vital Signs: 18:46 Pulse 78; Resp 16; Temp 97.9(O); Pulse Ox 99% on R/A; Weight 93.89 kg; Height 4 ft. 11 ls4 in. (149.86 cm); Pain 6/10; 19:30 BP 127 / 73; Pulse 84; Resp 18; Pulse Ox 98% on R/A; wh 20:30 BP 125 / 73; Pulse 84; Resp 18; Pulse Ox 97% on R/A; wh 18:46 Body Mass Index 41.81 (93.89 kg, 149.86 cm) ls4 MDM: 18:37 Patient medically screened. hong 19:51 Data reviewed: vital signs, nurses notes. Counseling: I had a detailed discussion with [facility] the patient and/or guardian regarding: the historical points, exam findings, and any diagnostic results supporting the discharge/admit diagnosis, lab results, radiology results, the need for outpatient follow up, to return to the emergency department if symptoms worsen or persist or if there are any questions or concerns that arise at home. ED course: Pain is reproducible. Cardiac enzymes normal. D-dimer negative. Heart score = 3. Patient is advised to follow up with pcp and otherwise given strict return precautions. Patient understood and agrees with the plan of care. . 10/22 18:45 Order name: Basic Metabolic Panel; Complete Time: 19:36 [facility] 10/22 18:45 Order name: CBC with Diff; Complete Time: 19:31 [facility] 10/22 18:45 Order name: LFT's; Complete Time: 19:36 [facility] 10/22 18:45 Order name: Magnesium; Complete Time: 19:36 [facility] 10/22 18:45 Order name: NT PRO-BNP; Complete Time: 19:36 [facility] 10/22 18:45 Order name: PT-INR; Complete Time: 19:31 [facility] 10/22 18:45 Order name: Troponin (emerg Dept Use Only); Complete Time: 19:36 [facility] 10/22 18:45 Order name: XRAY Chest (1 view); Complete Time: 19:43 [facility] 10/22 18:45 Order name: EKG; Complete Time: 18:46 jmm 10/22 18:45 Order name: Cardiac monitoring; Complete Time: 19:01 [facility] 10/22 18:45 Order name: EKG - Nurse/Tech; Complete Time: 19:01 [facility] 10/22 18:45 Order name: IV Saline Lock; Complete Time: 18:47 [facility] 10/22 18:45 Order name: Labs collected and sent; Complete Time: 18:47 [facility] 10/22 18:45 Order name: D-Dimer; Complete Time: 19:31 m 10/22 18:45 Order name: O2 Per Protocol; Complete Time: 18:47 [facility] 10/22 18:45 Order name: O2 Sat Monitoring; Complete Time: 18:47 jmm EC:34 Rate is 83 beats/min. Rhythm is regular. QRS Dudley is Normal. CO interval is normal. QRS jmm interval is normal. QT interval is normal. No Q waves. T waves are Flattened in leads I, aVL, V1. No ST changes noted. Reviewed by me. Administered Medications: No medications were administered Disposition: 10/23 10:57 Co-signature as Attending Physician, Aubrey Jaime MD I agree with the assessment and hong plan of care. Disposition: 10/23/19 19:53 Discharged to Home. Impression: Chest pain, unspecified. - Condition is Stable. - Discharge Instructions: Nonspecific Chest Pain. - Prescriptions for orphenadrine citrate 100 mg Oral Tablet Sustained Release - take 1 tablet by ORAL route 2 times per day As needed; 20 tablet. - Medication Reconciliation Form, Thank You Letter, Antibiotic Education, Prescription Opioid Use form. - Follow up: Private Physician; When: 2 - 3 days; Reason: Recheck today's complaints, Continuance of care, Re-evaluation by your physician. Signatures: Dispatcher [employer] Aubrey Quinn MD MD cha Mickail, Joel, PA PA jmm Habalo, Winsy wh Stewart, Lisa, RN RN ls4 Maicol Matias RN RN ll1 Corrections: (The following items were deleted from the chart) 10/22 20:36 19:53 10/23/2019 19:53 Discharged to Home. Impression: Chest pain, unspecified. wh Condition is Stable. Forms are Medication Reconciliation Form, Thank You Letter, Antibiotic Education, Prescription Opioid Use. Follow up: Private Physician; When: 2 - 3 days; Reason: Recheck today's complaints, Continuance of care, Re-evaluation by your physician. juve
--- NOTE | 2019-10-23 19:54 | ER ---
Nurse's Notes [facility] Name: Lupe Yeager Age: 29 yrs Sex: Female : 1990 Arrival Date: 10/23/2019 Time: 18:30 Bed 14 Private MD: Diagnosis: Chest pain, unspecified Presentation: 10/22 18:46 Chief complaint: Patient states: I HAVE A PAINFUL LUMP BETWEEN BY BREASTS. Coronavirus ls4 screen: At this time, unable to obtain information related to travel outside the [place] Ebola Screen: No symptoms or risks identified at this time. Initial Sepsis Screen: Does the patient meet any 2 criteria? No. Patient's initial sepsis screen is negative. Does the patient have a suspected source of infection? No. Patient's initial sepsis screen is negative. Risk Assessment: Do you want to hurt yourself or someone else? Patient reports no desire to harm self or others. Onset of symptoms is unknown. 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 - Social history:: Smoking status: unknown. Screenin:49 Abuse screen: Denies threats or abuse. Denies injuries from another. Nutritional ls4 screening: No deficits noted. Tuberculosis screening: No symptoms or risk factors identified. Fall Risk None identified. Assessment: 18:45 General: Appears in no apparent distress. Behavior is calm, cooperative. Pain: ll1 Complains of pain in mid chest Quality of pain is described as aching, Is continuous. Pain: Pain does not radiate. Pain began gradually. Neuro: No deficits noted. Cardiovascular: Heart tones S1 S2 Capillary refill < 3 seconds Clubbing of nail beds is absent Patient's skin is warm and dry. Rhythm is regular Chest pain. Respiratory: No deficits noted. Airway is patent Trachea midline Respiratory effort is even, unlabored, Respiratory pattern is regular, symmetrical, Denies cough. GI: No deficits noted. 19:30 General: Appears in no apparent distress. Behavior is calm, cooperative, appropriate wh for age. Pain: Complains of pain in chest. Neuro: Level of Consciousness is awake, alert, obeys commands, Oriented to person, place, time, situation, Appropriate for age. Cardiovascular: Heart tones S1 S2. Respiratory: Airway is patent Respiratory effort is even, unlabored, Respiratory pattern is regular, symmetrical, Breath sounds are clear bilaterally. GI: Abdomen is flat, non-distended. : No signs and/or symptoms were reported regarding the genitourinary system. EENT: No signs and/or symptoms were reported regarding the EENT system. Derm: Skin is intact, is healthy with good turgor, Skin is pink, warm \T\ dry. normal. Musculoskeletal: Circulation, motion, and sensation intact. 20:30 Reassessment: Patient appears in no apparent distress at this time. No changes from previously documented assessment. Patient and/or family updated on plan of care and expected duration. Pain level reassessed. Patient is alert, oriented x 3, equal unlabored respirations, skin warm/dry/pink. Vital Signs: 18:46 Pulse 78; Resp 16; Temp 97.9(O); Pulse Ox 99% on R/A; Weight 93.89 kg; Height 4 ft. 11 ls4 in. (149.86 cm); Pain 6/10; 19:30 BP 127 / 73; Pulse 84; Resp 18; Pulse Ox 98% on R/A; wh 20:30 BP 125 / 73; Pulse 84; Resp 18; Pulse Ox 97% on R/A; wh 18:46 Body Mass Index 41.81 (93.89 kg, 149.86 cm) ls4 ED Course: 18:30 Patient arrived in ED. mr 18:35 Brad Varela PA is PHCP. jmm 18:35 Aubrey Jaime MD is Attending Physician. jmm 18:35 Patient has correct armband on for positive identification. Placed in gown. Bed in low ls4 position. Call light in reach. Side rails up X2. satellite project site monitor on. Pulse ox on. NIBP on. 18:36 Florencio, Lynsay, RN is Primary Nurse. ll1 18:48 Triage completed. ls4 18:49 No provider procedures requiring assistance completed. ls4 18:50 Inserted saline lock: 20 gauge in right antecubital area, using aseptic technique. ll1 Blood collected. Patient maintains SpO2 saturation greater than 95% on room air. 19:05 EKG completed in triage. Results shown to MD. ll1 19:06 XRAY Chest (1 view) In Process Unspecified. EDMS 19:30 Arm band placed on right wrist. 20:35 IV discontinued, intact, bleeding controlled, No redness/swelling at site. Administered Medications: No medications were administered Outcome: 19:53 Discharge ordered by MD. [facility] 20:34 Discharged to home ambulatory. 20:34 Condition: stable 20:34 Discharge instructions given to patient, Instructed on discharge instructions, follow up and referral plans. medication usage, POC Demonstrated understanding of instructions, follow-up care, medications, POC Prescriptions given X 1. 20:36 Patient left the ED. Signatures: Dispatcher [employer] EDMS Brad Varela PA PA jmm Rivera, Mary mr Noel, [facility] Yuki Pryor, RN RN ls4 Maicol Matias RN RN ll1
[2019-10-23 20:56] VITALS: TEMP 97.9
[2019-10-23 20:58] VITALS: BP 125/73; O2SAT 97
== END 2019-10-23 20:36 | disposition home or self-care (01) ==
LOC: ER 18:26
DX: R07.9 Chest pain, unspecified (principal); I10 Essential (primary) hypertension; E11.9 Type 2 diabetes mellitus without complications; E03.9 Hypothyroidism, unspecified; Z88.8 Allergy status to other drugs, medicaments and biological substances
CPT/HCPCS: 36415; 71045; 80048; 80076; 83735; 83880; 84484; 85025; 85379; 85610; 93005; 99285

== ENCOUNTER 2020-12-08 09:04 | Emergency (ER) | payer OTHER ==
--- NOTE | 2020-12-08 10:04 | RAD REPORT ---
EXAM DESCRIPTION: RAD - Foot Left 3 View - 12/08/2020 9:45 am CLINICAL HISTORY: PAIN COMPARISON: No comparisons FINDINGS: No fracture, dislocation or periosteal reaction. No acute or destructive bony process. Pa tient has a very minimal plantar spur. No air or foreign body in the soft tissues. IMPRESSION: Negative left foot examination for acute finding. Very minimal plantar spur.
[2020-12-08] MEDS ORDERED: IBUPROFEN 400 MG TAB ONE (10:05)
--- NOTE | 2020-12-08 10:41 | ER ---
Nurse's Notes [facility] Name: Lupe Yeager Age: 30 yrs Sex: Female : 1990 Arrival Date: 12/08/2020 Time: 09:07 Bed 10 Private MD: Diagnosis: Sprain of foot Presentation: 12/08 09:11 Chief complaint: Patient states: Missed step on stair and feel three step down, reports jl7 left ankle and top of foot pain, no swelling noted in triage. Coronavirus screen: At this time, the client does not indicate any symptoms associated with coronavirus-19. Ebola Screen: No symptoms or risks identified at this time. Initial Sepsis Screen: Does the patient meet any 2 criteria? No. Patient's initial sepsis screen is negative. Does the patient have a suspected source of infection? No. Patient's initial sepsis screen is negative. Risk Assessment: Do you want to hurt yourself or someone else? Patient reports no desire to harm self or others. Onset of symptoms was December 08, 2020 at 08:00. 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 pt ambulates well with crutches as demonstated. Triage Assessment: 09:13 General: Appears in no apparent distress. uncomfortable, Behavior is calm, cooperative, jl7 appropriate for age. Pain: Complains of pain in left lateral malleolus and dorsum of left foot Pain currently is 7 out of 10 on a pain scale. Musculoskeletal: Swelling absent. 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 - Social history:: Smoking status: Patient denies any tobacco usage or history of. Screenin:49 Abuse screen: Denies threats or abuse. Denies injuries from another. Nutritional tc5 screening: No deficits noted. Tuberculosis screening: No symptoms or risk factors identified. Fall Risk Fall in past 12 months (25 points). Assessment: 09:47 Reassessment: No changes from previously documented assessment. pt reports falling down tc5 some stairs this am causing pain and swelling to the top of left foot, rates pain 7/10 at this time. General: Appears in no apparent distress. Behavior is calm, cooperative, appropriate for age. Pain: Complains of pain in lateral aspect of left foot. Neuro: No deficits noted. Cardiovascular: No deficits noted. Respiratory: No deficits noted. GI: No deficits noted. : No deficits noted. Musculoskeletal: Reports pain in lateral aspect of left foot. Vital Signs: 09:11 BP 128 / 79; Pulse 73; Resp 17; Temp 97.1; Pulse Ox 100% ; Weight 88.45 kg; Height 4 7 ft. 11 in. (149.86 cm); Pain 7/10; 11:16 BP 130 / 72; Pulse 80; Resp 16; Pulse Ox 98% ; tc5 09:11 Body Mass Index 39.38 (88.45 kg, 149.86 cm) 7 ED Course: 09:07 Patient arrived in ED. as 09:12 Brad Varela PA is PHCP. [facility] 09:12 Aubrey Jaime MD is Attending Physician. [facility] 09:13 Triage completed. jl7 09:13 Arm band placed on right wrist. 7 09:27 Meenu Rene, CHRISTIANO is Primary Nurse. tc5 09:45 Foot Left 3 View XRAY In Process Unspecified. EDMS 10:39 Timothy Villalpando MD is Referral Physician. [facility] Administered Medications: 09:46 Drug: Ibuprofen 800 mg Route: PO; tc5 11:18 Follow up: Response: No adverse reaction tc5 Outcome: 10:40 Discharge ordered by . [facility] 11:18 Patient left the ED. tc5 Signatures: Dispatcher [employer] EDMS Brad Varela PA PA jmm Martinez, Amelia as Leal, Jahala, RN RN jl7 Meenu Rene, RN RN tc5
--- NOTE | 2020-12-08 10:41 | EDPHYS ---
Physician Documentation [facility] Name: Lupe Yeager Age: 30 yrs Sex: Female : 1990 Arrival Date: 12/08/2020 Time: 09:07 Bed 10 Private MD: [place] Physician Aubrey Jaime HPI: 12/08 10:36 This 30 yrs old Female presents to ER via Wheelchair with complaints of Ankle jmm Injury, Fall Injury. 10:36 The patient presents with an injury, pain. Onset: The symptoms/episode began/occurred jmm acutely. Associated signs and symptoms: Pertinent positives: Pain, swelling. Modifying factors: The symptoms are alleviated by nothing, the symptoms are aggravated by weight bearing, movement. This is a 30 hypothyroidism, hyper cholesterolemia the presents to the emergency department with complaints of left foot pain. Patient states she missed stepped down a step and inverted her left foot. Denies ankle pain.. 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 - Social history:: Smoking status: Patient denies any tobacco usage or history of. ROS: 10:36 Constitutional: Negative for fever, chills, and weight loss, Cardiovascular: Negative jmm for chest pain, palpitations, and edema, Respiratory: Negative for shortness of breath, cough, wheezing, and pleuritic chest pain. 10:36 MS/extremity: Positive for injury or acute deformity, pain. 10:36 All other systems are negative. Exam: 10:36 Constitutional: This is a well developed, well nourished patient who is awake, alert, jmm and in no acute distress. Head/Face: atraumatic. Eyes: EOMI, no conjunctival erythema appreciated ENT: Moist Mucus Membranes Neck: Trachea midline, Supple Chest/axilla: Normal chest wall appearance and motion. Cardiovascular: Regular rate and rhythm. No edema appreciated Respiratory: Normal respirations, no respiratory distress appreciated Abdomen/GI: Non distended, soft Back: Normal ROM Skin: General appearance color normal 10:36 Musculoskeletal/extremity: ROM: intact in all extremities, Left lateral foot left lateral foot pain on palpation, no malleolar pain, no deformity appreciated to the foot or the ankle, full dorsalis pulse appreciated, compartments are soft, neurovascular intact. 10:36 Skin: Appearance: Color: normal in color. 10:36 Neuro: Orientation: is normal, Mentation: is normal, Memory: is normal. 10:36 Psych: Behavior/mood is pleasant, cooperative. Vital Signs: 09:11 BP 128 / 79; Pulse 73; Resp 17; Temp 97.1; Pulse Ox 100% ; Weight 88.45 kg; Height 4 jl7 ft. 11 in. (149.86 cm); Pain 7/10; 11:16 BP 130 / 72; Pulse 80; Resp 16; Pulse Ox 98% ; tc5 09:11 Body Mass Index 39.38 (88.45 kg, 149.86 cm) jl7 MDM: 09:29 Patient medically screened. [facility] 10:38 Data reviewed: vital signs, nurses notes. Counseling: I had a detailed discussion with juve the patient and/or guardian regarding: the historical points, exam findings, and any diagnostic results supporting the discharge/admit diagnosis, radiology results, the need for outpatient follow up, to return to the emergency department if symptoms worsen or persist or if there are any questions or concerns that arise at home. ED course: Patient is alert nontoxic patient is alert nontoxic in appearance in the ED. X-ray negative. Patient advised to follow-up with PCP or orthopedics for further evaluation. Patient understood and agrees to plan of care.. 12/08 09:29 Order name: Foot Left 3 View XRAY; Complete Time: 10: [facility] 12/08 10:09 Order name: Ge wrap-joint; Complete Time: 11:18 [facility] Administered Medications: 09:46 Drug: Ibuprofen 800 mg Route: PO; tc5 11:18 Follow up: Response: No adverse reaction tc5 Disposition: 12/09 07:51 Co-signature as Attending Physician, Aubrey Jaime MD I agree with the assessment and hong plan of care. Disposition Summary: 12/08/20 10:40 Discharge Ordered Location: Home [facility] Condition: Stable [facility] Diagnosis - Sprain of foot jm Followup: jmm - With: Private Physician - When: 2 - 3 days - Reason: Recheck today's complaints, Continuance of care, Re-evaluation by your physician Followup: syedm - With: Timothy Villalpando MD - When: 2 - 3 days - Reason: Recheck today's complaints, Continuance of care, Re-evaluation by your physician Discharge Instructions: - Discharge Summary Sheet [facility] - Foot Sprain [facility] Forms: - Medication Reconciliation Form [facility] - Thank You Letter [facility] - Antibiotic Education [facility] - Prescription Opioid Use [facility] Prescriptions: - orphenadrine citrate 100 mg Oral Tablet Sustained Release - take 1 tablet by ORAL route 2 times per day As needed; 20 tablet; Refills: 0, jm Product Selection Permitted Signatures: Dispatcher [employer] Aubrey Quinn MD MD cha Mickail, Joel, PA PA jmm Leal, Jahala, RN RN jl7 Meenu Rene RN RN tc5
[2020-12-08 11:34] VITALS: TEMP 97.1
[2020-12-08 11:38] VITALS: BP 130/72; O2SAT 98
== END 2020-12-08 11:18 | disposition home or self-care (01) ==
LOC: ER 09:04
DX: S93.602A Unspecified sprain of left foot, initial encounter (principal); X58.XXXA Exposure to other specified factors, initial encounter; Y93.01 Activity, walking, marching and hiking; I10 Essential (primary) hypertension; E11.9 Type 2 diabetes mellitus without complications; Z88.8 Allergy status to other drugs, medicaments and biological substances
CPT/HCPCS: 99283

== ENCOUNTER 2021-04-01 15:10 | Emergency (ER) | payer OTHER ==
--- OUTSIDE RECORDS SUMMARY | 2021-04-01 15:13 | XMS REPORT | Continuity of Care Document ---
:1990 Author Organization [facility] t Address [address] [place] [address] Care Team Providers Name Role Phone MEREDITH KNOX Primary Care Physician Unavailable Blue RODRIGUEZ Attending Clinician Unavailable Meredith Knox MD Attending Clinician Doctor Unassigned, Charles Attending Clinician Unavailable Christine Costello MD Attending Clinician Christine COSTELLO Attending Clinician Unavailable Payers Payer Name Policy Type Policy Number Effective Date Expiration Date S ource Problems Condition Condition Condition Status Onset Resolution Last Treating Co mments Source Name Details Category Date Date Treatment Clinician Date Essential Essential Disease Active 2019-03 Uni vers hypertensi hypertensi 1-09 it y of on on 00:00: [place] 00 Medical Branch Type 2 Type 2 Disease Active 2019-03 Univers diabetes diabetes 1-09 ity of mellitus mellitus 00:00: [place] without without 00 Medical complicati complicati Br anch on on SILVA SILVA Disease Active Univers (nonalcoho (nonalcoho 9-09 it y of lic lic 00:00: [place] steatohepa steatohepa 00 Me dical titis) titis) Branch Morbid Morbid Disease Active 2016-03 [facility] obesity obesity 0-16 [place] with body [place] mass [place] mass index 00 Me dical of of Branch 40.0-49.9 40.0-49.9 Allergies, Adverse Reactions, Alerts Allergy Allergy Status Severity Reaction(s) Onset Inactive Treating Comm ents Source Name Type Date Date Clinician DIPHENHY DRUG Active Swelling Univer s DRAMINE INGREDI 8-19 ity of HCL 00:00: [place] 00 Medical Branch Diphenhy Propensi Active Hypertension Univers dramine ty to 8-19 ity of Hcl adverse 00:00: [place] reaction 00 Medical s Branch Social History Social Habit Start Date Stop Date Quantity Comments Source Exposure to Not sure University SARS-CoV-2 [place] [facility] (event) Branch Alcohol intake 2021-03-14 2021-03-14 Ex-drinker University 00:00:00 00:00:00 (finding) [facility] Tobacco use and 2016-12-15 2016-12-15 Never used Universit y of exposure 00:00:00 00:00:00 [facility] Sex [birth year] Universit y of 00:00:00 00:00:00 [facility] Smoking Status Start Date Stop Date Source Never smoker [facility] Medications Ordered Filled Start Stop Current Ordering Indication Dosage Frequency Signature Comments Components Source Medication Medication Date Date Medication? Clinician (SIG) Name Name Cyanocobala Yes [id number] 1000ug Take 1 Univers min 1,000 1-10 tablet by ity o f mcg tablet 00:00: mouth [place] 00 daily. Medical Branch Cyanocobala Yes [id number] 1000ug Take 1 Univers min 1,000 1-10 tablet by ity o f mcg tablet 00:00: mouth [place] 00 daily. Medical Branch Cyanocobala Yes [id number] 1000ug Take 1 Univers min 1,000 1-10 tablet by ity o f mcg tablet 00:00: mouth [place] 00 daily. [facility] Cyanocobala Yes [id number] 1000ug Take 1 Univers min 1,000 1-10 tablet by ity o f mcg tablet 00:00: mouth [place] 00 daily. [facility] Branch Cyanocobala Yes [id number] 1000ug Take 1 Univers min 1,000 1-10 tablet by ity o f mcg tablet 00:00: mouth [place] 00 daily. [facility] Branch Cyanocobala Yes [id number] 1000ug Take 1 Univers min 1,000 1-10 tablet by ity o f mcg tablet 00:00: mouth [place] 00 daily. [facility] Cyanocobala Yes [id number] 1000ug Take 1 Univers min 1,000 1-10 tablet by ity o f mcg tablet 00:00: mouth [place] 00 daily. Medical Branch Cyanocobala 0 Yes [id number] 1000ug Take 1 Univers min 1,000 1-10 tablet by ity o f mcg tablet 00:00: mouth [place] 00 daily. Medical Branch lisinopriL 2020-03 Yes [id number] 20mg Take 1 U nivers 20 mg 2-17 tablet by ity of tablet 00:00: mouth [place] 00 daily. Medical Branch lisinopriL 2020-03 Yes [id number] 20mg Take 1 U nivers 20 mg 2-17 tablet by ity of tablet 00:00: mouth [place] 00 daily. Medical Branch lisinopriL 2020-03 Yes [id number] 20mg Take 1 U nivers 20 mg 2-17 tablet by ity of tablet 00:00: mouth [place] 00 daily. Medical Branch lisinopriL 2020-03 Yes [id number] 20mg Take 1 U nivers 20 mg 2-17 tablet by ity of tablet 00:00: mouth [place] 00 daily. Medical Branch lisinopriL 2020-03 Yes [id number] 20mg Take 1 U nivers 20 mg 2-17 tablet by ity of tablet 00:00: mouth [place] 00 daily. Medical Branch lisinopriL 2020-03 Yes [id number] 20mg Take 1 U nivers 20 mg 2-17 tablet by ity of tablet 00:00: mouth [place] 00 daily. Medical Branch lisinopriL 2020-03 Yes [id number] 20mg Take 1 U nivers 20 mg 2-17 tablet by ity of tablet 00:00: mouth [place] 00 daily. Medical Branch lisinopriL 2020-03 Yes [id number] 20mg Take 1 U nivers 20 mg 2-17 tablet by ity of tablet 00:00: mouth [place] 00 daily. Medical Branch JANUVIA 100 2020-03 Yes [id number] TAKE 1 Univers mg tablet 2-16 TABLET BY ity o f 00:00: MOUTH [place] 00 DAILY Medical Branch JANUVIA 100 2020-03 Yes [id number] TAKE 1 Univers mg tablet 2-16 TABLET BY ity o f 00:00: MOUTH [place] 00 DAILY Medical Branch JANUVIA 100 2020-03 Yes [id number] TAKE 1 Univers mg tablet 2-16 TABLET BY ity o f 00:00: MOUTH [place] 00 DAILY Medical Branch JANUVIA 100 2020-03 Yes [id number] TAKE 1 Univers mg tablet 2-16 TABLET BY ity o f 00:00: MOUTH DAILY Medical Branch MERIUVIA 100 2020-03 Yes [id number] TAKE 1 Univers mg tablet 2-16 TABLET BY ity o f 00:00: MOUTH DAILY Medical Branch MERIIA 100 2020-03 Yes [id number] TAKE 1 Univers mg tablet 2-16 TABLET BY ity o f 00:00: MOUTH DAILY Medical Branch MERIUVIA 100 2020-03 Yes [id number] TAKE 1 Univers mg tablet 2-16 TABLET BY ity o f 00:00: MOUTH DAILY Medical Branch MERIUVIA 100 2020-03 Yes [id number] TAKE 1 Univers mg tablet 2-16 TABLET BY ity o f 00:00: MOUTH DAILY Medical Branch ibuprofen 2020-03 Yes [id number] 800mg Take 1 U nivers 800 mg 0-27 tablet by ity of tablet 00:00: mouth (two) Medical times Branch daily with meals as needed for Pain (scale 4-6). tiZANidine 2020-03 Yes [id number] 4mg Take 1 U nivers 4 mg tablet 0-27 tablet by ity of 00:00: mouth every 8 Medical (eight) Branch hours as needed for Pain (scale 7-10). ibuprofen 2020-03 Yes [id number] 800mg Take 1 U nivers 800 mg 0-27 tablet by ity of tablet 00:00: mouth (two) Medical times Branch daily with meals as needed for Pain (scale 4-6). tiZANidine 2020-03 Yes [id number] 4mg Take 1 U nivers 4 mg tablet 0-27 tablet by ity of 00:00: mouth every 8 Medical (eight) Branch hours as needed for Pain (scale 7-10). ibuprofen 2020-03 Yes [id number] 800mg Take 1 U nivers 800 mg 0-27 tablet by ity of tablet 00:00: mouth (two) Medical times Branch daily with meals as needed for Pain (scale 4-6). tiZANidine 2020-03 Yes [id number] 4mg Take 1 U nivers 4 mg tablet 0-27 tablet by ity of 00:00: mouth every 8 Medical (eight) Branch hours as needed for Pain (scale 7-10). ibuprofen 2020-03 Yes [id number] 800mg Take 1 U nivers 800 mg 0-27 tablet by ity of tablet 00:00: mouth 2 (two) Medical times Branch daily with meals as needed for Pain (scale 4-6). tiZANidine 2020-03 Yes [id number] 4mg Take 1 U nivers 4 mg tablet 0-27 tablet by ity of 00:00: mouth [place] 00 every 8 Medical (eight) Branch hours as needed for Pain (scale 7-10). ibuprofen 2020-03 Yes [id number] 800mg Take 1 U nivers 800 mg 0-27 tablet by ity of tablet 00:00: mouth 2 (two) Medical times Branch daily with meals as needed for Pain (scale 4-6). tiZANidine 2020-03 Yes [id number] 4mg Take 1 U nivers 4 mg tablet 0-27 tablet by ity of 00:00: mouth [place] 00 every 8 Medical (eight) Branch hours as needed for Pain (scale 7-10). ibuprofen 2020-03 Yes [id number] 800mg Take 1 U nivers 800 mg 0-27 tablet by ity of tablet 00:00: mouth (two) Medical times Branch daily with meals as needed for Pain (scale 4-6). tiZANidine 2020-03 Yes [id number] 4mg Take 1 U nivers 4 mg tablet 0-27 tablet by ity of 00:00: mouth [place] 00 every 8 Medical (eight) Branch hours as needed for Pain (scale 7-10). ibuprofen 2020-03 Yes [id number] 800mg Take 1 U nivers 800 mg 0-27 tablet by ity of tablet 00:00: mouth 2 (two) Medical times Branch daily with meals as needed for Pain (scale 4-6). tiZANidine 2020-03 Yes [id number] 4mg Take 1 U nivers 4 mg tablet 0-27 tablet by ity of 00:00: mouth [place] 00 every 8 Medical (eight) Branch hours as needed for Pain (scale 7-10). ibuprofen 2020-03 Yes [id number] 800mg Take 1 U nivers 800 mg 0-27 tablet by ity of tablet 00:00: mouth 2 (two) Medical times Branch daily with meals as needed for Pain (scale 4-6). tiZANidine 2020-03 Yes [id number] 4mg Take 1 U nivers 4 mg tablet 0-27 tablet by ity of 00:00: mouth [place] 00 every 8 Medical (eight) Branch hours as needed for Pain (scale 7-10). gabapentin 2020-03 Yes [id number] TAKE 1 TO Univers 100 mg 0-18 3 CAPSULES ity of capsule 00:00: [place]TH 1 [place] 00 TIME AT Medical NIGHT Branch NEEDED gabapentin 2020-03 Yes [id number] TAKE 1 TO Univers 100 mg 0-18 3 CAPSULES ity of capsule 00:00: [place]TH 1 [place] 00 TIME AT Medical NIGHT Branch NEEDED gabapentin 2020-03 Yes [id number] TAKE 1 TO Univers 100 mg 0-18 3 CAPSULES ity of capsule 00:00: [place] MOUTH 1 [place] 00 TIME AT Medical NIGHT Branch NEEDED gabapentin 2020-03 Yes [id number] TAKE 1 TO Univers 100 mg 0-18 3 CAPSULES ity of capsule 00:00: [place]OUTH 1 [place] 00 TIME AT Medical NIGHT Branch NEEDED gabapentin 2020-03 Yes [id number] TAKE 1 TO Univers 100 mg 0-18 3 CAPSULES ity of capsule 00:00: [place] MOUTH 1 [place] 00 TIME AT Medical NIGHT Branch NEEDED gabapentin 2020-03 Yes [id number] TAKE 1 TO Univers 100 mg 0-18 3 CAPSULES ity of capsule 00:00: [place] MOUTH 1 [place] 00 TIME AT Medical NIGHT Branch NEEDED gabapentin 2020-03 Yes [id number] TAKE 1 TO Univers 100 mg 0-18 3 CAPSULES ity of capsule 00:00: [place] MOUTH 1 [place] 00 TIME AT Medical NIGHT Branch NEEDED gabapentin 2020-03 Yes [id number] TAKE 1 TO Univers 100 mg 0-18 3 CAPSULES ity of capsule 00:00: [place] MOUTH 1 [place] 00 TIME AT Medical NIGHT Branch NEEDED levothyroxi 2020-03 Yes 100ug Take 1 Uni vers ne 0-12 tablet by ity of (SYNTHROID) 00:00: mouth [place] 100 mcg 00 every Medical tablet morning. Branch levothyroxi 2020-03 Yes 100ug Take 1 Uni vers ne 0-12 tablet by ity of (SYNTHROID) 00:00: mouth [place] 100 mcg 00 every Medical tablet morning. Branch levothyroxi 2020-03 Yes 100ug Take 1 Uni vers ne 0-12 tablet by ity of (SYNTHROID) 00:00: mouth [place] 100 mcg 00 every Medical tablet morning. Branch levothyroxi 2020-03 Yes 100ug Take 1 Uni vers ne 0-12 tablet by ity of (SYNTHROID) 00:00: mouth [place] 100 mcg 00 every Medical tablet morning. Branch levothyroxi 2020-03 Yes 100ug Take 1 Uni vers ne 0-12 tablet by ity of (SYNTHROID) 00:00: mouth [place] 100 mcg 00 every Medical tablet morning. Branch levothyroxi 2020-03 Yes 100ug Take 1 Uni vers ne 0-12 tablet by ity of (SYNTHROID) 00:00: mouth [place] 100 mcg 00 every Medical tablet morning. Branch levothyroxi 2020-03 Yes 100ug Take 1 Uni vers ne 0-12 tablet by ity of (SYNTHROID) 00:00: mouth [place] 100 mcg 00 every Medical tablet morning. Branch levothyroxi 2020-03 Yes 100ug Take 1 Uni vers ne 0-12 tablet by ity of (SYNTHROID) 00:00: mouth [place] 100 mcg 00 every Medical tablet morning. Branch cariprazine Yes 1.5mg Take 1.5 U nivers (VRAYLAR) 9-21 mg by ity of 1.5 mg Cap 11:40: mouth [place] 59 daily. Medical Branch cariprazine Yes 1.5mg Take 1.5 U nivers (VRAYLAR) 9-21 mg by ity of 1.5 mg Cap 11:40: mouth [place] 59 daily. Medical Branch cariprazine Yes 1.5mg Take 1.5 U nivers (VRAYLAR) 9-21 mg by ity of 1.5 mg Cap 11:40: mouth [place] 59 daily. Medical Branch cariprazine 0 Yes 1.5mg Take 1.5 U nivers (VRAYLAR) 9-21 mg by ity of 1.5 mg Cap 11:40: mouth [place] 59 daily. Medical Branch cariprazine Yes 1.5mg Take 1.5 U nivers (VRAYLAR) 9-21 mg by ity of 1.5 mg Cap 11:40: mouth [place] 59 daily. Medical Branch cariprazine Yes 1.5mg Take 1.5 U nivers (VRAYLAR) 9-21 mg by ity of 1.5 mg Cap 11:40: mouth [place] 59 daily. Medical Branch cariprazine Yes 1.5mg Take 1.5 U nivers (VRAYLAR) 9-21 mg by ity of 1.5 mg Cap 11:40: mouth [place] 59 daily. Medical Branch cariprazine Yes 1.5mg Take 1.5 U nivers (VRAYLAR) 9-21 mg by ity of 1.5 mg Cap 11:40: mouth [place] 59 daily. Medical Branch PIOGLITAZON Yes [id number] 15mg TAKE 1 Univers E 15 mg 9-21 TABLET BY ity of tablet 00:00: MOUTH DAILY Medical Branch PIOGLITAZON Yes [id number] 15mg TAKE 1 Univers E 15 mg 9-21 TABLET BY ity of tablet 00:00: MOUTH DAILY Medical Branch PIOGLITAZON Yes [id number] 15mg TAKE 1 Univers E 15 mg 9-21 TABLET BY ity of tablet 00:00: MOUTH DAILY Medical Branch PIOGLITAZON Yes [id number] 15mg TAKE 1 Univers E 15 mg 9-21 TABLET BY ity of tablet 00:00: MOUTH DAILY Medical Branch PIOGLITAZON Yes [id number] 15mg TAKE 1 Univers E 15 mg 9-21 TABLET BY ity of tablet 00:00: MOUTH DAILY Medical Branch PIOGLITAZON Yes [id number] 15mg TAKE 1 Univers E 15 mg 9-21 TABLET BY ity of tablet 00:00: MOUTH DAILY Medical Branch PIOGLITAZON Yes [id number] 15mg TAKE 1 Univers E 15 mg 9-21 TABLET BY ity of tablet 00:00: MOUTH DAILY Medical Branch PIOGLITAZON Yes [id number] 15mg TAKE 1 Univers E 15 mg 9-21 TABLET BY ity of tablet 00:00: MOUTH DAILY Medical Branch doxepin 50 Yes Univers mg capsule 9-13 ity of 00:00: Medical Branch doxepin 50 2021-0 Yes Univers mg capsule 9-13 ity of 00:00: [place] [facility] doxepin 50 2020-0 Yes Univers mg capsule 9-13 ity of 00:00: [place] [facility] doxepin 50 2020-0 Yes Univers mg capsule 9-13 ity of 00:00: [place] [facility] doxepin 50 2020-0 Yes Univers mg capsule 9-13 ity of 00:00: [place] [facility] doxepin 50 2020-0 Yes Univers mg capsule 9-13 ity of 00:00: [place] [facility] doxepin 50 2020-0 Yes Univers mg capsule 9-13 ity of 00:00: [place] [facility] doxepin 50 2020-0 Yes Univers mg capsule 9-13 ity of 00:00: [place] [facility] FLUoxetine 2020-0 Yes Univers 20 mg 8-31 ity of capsule 00:00: [place] [facility] FLUoxetine 2020-0 Yes Univers 20 mg 8-31 ity of capsule 00:00: [place] [facility] FLUoxetine 2020-0 Yes Univers 20 mg 8-31 ity of capsule 00:00: [place] [facility] FLUoxetine 2020-0 Yes Univers 20 mg 8-31 ity of capsule 00:00: [place] [facility] FLUoxetine 2020-0 Yes Univers 20 mg 8-31 ity of capsule 00:00: [place] [facility] FLUoxetine 2020-0 Yes Univers 20 mg 8-31 ity of capsule 00:00: [place] [facility] FLUoxetine 2020-0 Yes Univers 20 mg 8-31 ity of capsule 00:00: [place] [facility] FLUoxetine 2020-0 Yes Univers 20 mg 8-31 ity of capsule 00:00: [place] [facility] spironolact 2020-0 Yes [id number] 100mg Take 1 Univers one 100 mg 8-10 tablet by ity of tablet 00:00: mouth 2 [place] (two) Medical times Branch daily. spironolact 2020-0 Yes [id number] 100mg Take 1 Univers one 100 mg 8-10 tablet by ity of tablet 00:00: mouth 2 [place] (two) Medical times Branch daily. spironolact 2020-0 Yes [id number] 100mg Take 1 Univers one 100 mg 8-10 tablet by ity of tablet 00:00: mouth 2 [place] (two) Medical times Branch daily. spironolact 2021-0 Yes [id number] 100mg Take 1 Univers one 100 mg 8-10 tablet by ity of tablet 00:00: mouth (two) Medical times Branch daily. spironolact 2021-0 Yes [id number] 100mg Take 1 Univers one 100 mg 8-10 tablet by ity of tablet 00:00: mouth (two) Medical times Branch daily. spironolact 2021-0 Yes [id number] 100mg Take 1 Univers one 100 mg 8-10 tablet by ity of tablet 00:00: mouth (two) Medical times Branch daily. spironolact 2021-0 Yes [id number] 100mg Take 1 Univers one 100 mg 8-10 tablet by ity of tablet 00:00: mouth (two) Medical times Branch daily. spironolact 2021-0 Yes [id number] 100mg Take 1 Univers one 100 mg 8-10 tablet by ity of tablet 00:00: mouth (two) Medical times Branch daily. naltrexone- 2020-0 Yes [id number] 2{tbl} Take 2 Univers bupropion 6-15 tablets by ity of (CONTRAVE) 00:00: mouth 2 [place] 8-90 mg per 00 (two) Medical tablet times Branch daily. naltrexone- 2020-0 Yes [id number] 2{tbl} Take 2 Univers bupropion 6-15 tablets by ity of (CONTRAVE) 00:00: mouth 2 [place] 8-90 mg per 00 (two) Medical tablet times Branch daily. naltrexone- 2020-0 Yes [id number] 2{tbl} Take 2 Univers bupropion 6-15 tablets by ity of (CONTRAVE) 00:00: mouth 2 [place] 8-[place] mg per 00 (two) Medical tablet times Branch daily. naltrexone- 2020-0 Yes [id number] 2{tbl} Take 2 Univers bupropion 6-15 tablets by ity of (CONTRAVE) 00:00: mouth 2 [place] 8-[place] mg per 00 (two) Medical tablet times Branch daily. naltrexone- 2020-0 Yes [id number] 2{tbl} Take 2 Univers bupropion 6-15 tablets by ity of (CONTRAVE) 00:00: mouth 2 [place] 8-90 mg per 00 (two) Medical tablet times Branch daily. naltrexone- 2020-0 Yes [id number] 2{tbl} Take 2 Univers bupropion 6-15 tablets by ity of (CONTRAVE) 00:00: mouth 2 [place] 8-[place] mg per 00 (two) Medical tablet times Branch daily. naltrexone- 2020- Yes [id number] 2{tbl} Take 2 Univers bupropion 6-15 tablets by ity of (CONTRAVE) 00:00: mouth 2 [place] 8-[place] mg per 00 (two) Medical tablet times Branch daily. naltrexone- 2020- Yes [id number] 2{tbl} Take 2 Univers bupropion 6-15 tablets by ity of (CONTRAVE) 00:00: mouth 2 [place] 8-90 mg per 00 (two) Medical tablet times Branch daily. zolpidem Yes [id number] 5mg Take 1 Un jaquelin mg tablet 5-17 tablet by ity o f 00:00: mouth at [place] 00 bedtime as Medical needed for Branch Insomnia. zolpidem 2020-0 Yes [id number] 5mg Take 1 Un jaquelin mg tablet 5-17 tablet by ity o f 00:00: mouth at [place] 00 bedtime as Medical needed for Branch Insomnia. zolpidem 0 Yes [id number] 5mg Take 1 Un jaquelin mg tablet 5-17 tablet by ity o f 00:00: mouth at [place] 00 bedtime as Medical needed for Branch Insomnia. zolpidem 0 Yes [id number] 5mg Take 1 Un jaquelin mg tablet 5-17 tablet by ity o f 00:00: mouth at [place] 00 bedtime as Medical needed for Branch Insomnia. zolpidem 2020-0 Yes [id number] 5mg Take 1 Un jaquelin mg tablet 5-17 tablet by ity o f 00:00: mouth at [place] 00 bedtime as Medical needed for Branch Insomnia. zolpidem 2020-0 Yes [id number] 5mg Take 1 Un jaquelin mg tablet 5-17 tablet by ity o f 00:00: mouth at [place] 00 bedtime as Medical needed for Branch Insomnia. zolpidem 5 2021-0 Yes [id number] 5mg Take 1 Un jaquelin mg tablet 5-17 tablet by ity o f 00:00: mouth at [place] 00 bedtime as Medical needed for Branch Insomnia. zolpidem 5 2020-0 Yes [id number] 5mg Take 1 Un jaquelin mg tablet 5-17 tablet by ity o f 00:00: mouth at [place] 00 bedtime as Medical needed for Branch Insomnia. Immunizations Ordered Filled Immunization Date Status Comments [facility] e Immunization Name Name SARS-COV-2 COVID-19 2020-12-09 Completed Unive rsity of PFIZER VACCINE 00:00:00 [facility] SARS-COV-2 COVID-19 2020-12-09 Completed Unive rsity of PFIZER VACCINE 00:00:00 [facility] SARS-COV-2 COVID-19 2020-12-09 Completed Unive rsity of PFIZER VACCINE 00:00:00 [facility] SARS-COV-2 COVID-19 2020-12-09 Completed Unive rsity of PFIZER VACCINE 00:00:00 [facility] SARS-COV-2 COVID-19 2020-12-09 Completed Unive rsity of PFIZER VACCINE 00:00:00 [facility] SARS-COV-2 COVID-19 2020-12-09 Completed Unive rsity of PFIZER VACCINE 00:00:00 [facility] SARS-COV-2 COVID-19 2020-12-09 Completed Unive rsity of PFIZER VACCINE 00:00:00 [facility] SARS-COV-2 COVID-19 2020-12-09 Completed Unive rsity of PFIZER VACCINE 00:00:00 [facility] SARS-COV-2 COVID-19 2020-11-17 Completed Unive rsity of PFIZER VACCINE 00:00:00 [facility] SARS-COV-2 COVID-19 2020-11-17 Completed Unive rsity of PFIZER VACCINE 00:00:00 [facility] SARS-COV-2 COVID-19 2020-11-17 Completed Unive rsity of PFIZER VACCINE 00:00:00 [facility] SARS-COV-2 COVID-19 2020-11-17 Completed Unive rsity of PFIZER VACCINE 00:00:00 [facility] SARS-COV-2 COVID-19 2020-11-17 Completed Unive rsity of PFIZER VACCINE 00:00:00 [facility] SARS-COV-2 COVID-19 2020-11-17 Completed Unive rsity of PFIZER VACCINE 00:00:00 [facility] SARS-COV-2 COVID-19 2020-11-17 Completed Unive rsity of PFIZER VACCINE 00:00:00 [facility] SARS-COV-2 COVID-19 2020-11-17 Completed Unive rsity of PFIZER VACCINE 00:00:00 [facility] Td 2019-09-03 Completed University of 00:00:00 [facility] Td 2019-09-03 Completed University of 00:00:00 [facility] Td 2019-09-03 Completed University of 00:00:00 [facility] Td 2019-09-03 Completed University of 00:00:00 [facility] Td 2019-09-03 Completed University of 00:00:00 [facility] Td 2019-09-03 Completed University of 00:00:00 [facility] Td 2019-09-03 Completed University of 00:00:00 [facility] Td 2019-09-03 Completed University of 00:00:00 [facility] Twinrix (hep a/hep 2018-05-03 Completed Univer sity of b) 00:00:00 [facility] Twinrix (hep a/hep 2018-05-03 Completed Univer sity of b) 00:00:00 [facility] Twinrix (hep a/hep 2018-05-03 Completed Univer sity of b) 00:00:00 [facility] Twinrix (hep a/hep 2018-05-03 Completed Univer sity of b) 00:00:00 [facility] Twinrix (hep a/hep 2018-05-03 Completed Univer sity of b) 00:00:00 [facility] Twinrix (hep a/hep 2018-05-03 Completed Univer sity of b) 00:00:00 [facility] Twinrix (hep a/hep 2018-05-03 Completed Univer sity of b) 00:00:00 [facility] Twinrix (hep a/hep 2018-05-03 Completed Univer sity of b) 00:00:00 [facility] Twinrix (hep a/hep 2017-12-03 Completed Univer sity of b) 00:00:00 [facility] Twinrix (hep a/hep 2017-12-03 Completed Univer sity of b) 00:00:00 [facility] Twinrix (hep a/hep 2017-12-03 Completed Univer sity of b) 00:00:00 [facility] Twinrix (hep a/hep 2017-12-03 Completed Univer sity of b) 00:00:00 [facility] Twinrix (hep a/hep 2017-12-03 Completed Univer sity of b) 00:00:00 [facility] Twinrix (hep a/hep 2017-12-03 Completed Univer sity of b) 00:00:00 [facility] Twinrix (hep a/hep 2017-12-03 Completed Univer sity of b) 00:00:00 [facility] Twinrix (hep a/hep 2017-12-03 Completed Univer sity of b) 00:00:00 [facility] Twinrix (hep a/hep 2017-11-02 Completed Univer sity of b) 00:00:00 [facility] Twinrix (hep a/hep 2017-11-02 Completed Univer sity of b) 00:00:00 [facility] Twinrix (hep a/hep 2017-11-02 Completed Univer sity of b) 00:00:00 [facility] Twinrix (hep a/hep 2017-11-02 Completed Univer sity of b) 00:00:00 [facility] Twinrix (hep a/hep 2017-11-02 Completed Univer sity of b) 00:00:00 [facility] Twinrix (hep a/hep 2017-11-02 Completed Univer sity of b) 00:00:00 [facility] Twinrix (hep a/hep 2017-11-02 Completed Univer sity of b) 00:00:00 [facility] Twinrix (hep a/hep 2017-11-02 Completed Univer sity of b) 00:00:00 [facility] Vital Signs Vital Name Observation Time Observation Value Comments Source Systolic blood 2021-03-14 21:16:00 130 mm[Hg] Univer sity of pressure [facility] Diastolic blood 2021-03-14 21:16:00 78 mm[Hg] Unive rsity of pressure [facility] Heart rate 2021-03-14 21:16:00 87 /min [facility] Body temperature 2021-03-14 21:16:00 36.39 [facility] Body height 2021-03-14 21:16:00 149.9 cm [facility] Body weight 2021-03-14 21:16:00 97.705 kg [facility] BMI 2021-03-14 21:16:00 43.51 kg/m2 [facility] Oxygen saturation in 2021-03-14 21:16:00 98 /min [facility] Arterial blood by [facility] Pulse oximetry Branch Procedures Procedure Date / Time Performed Performing Clinician Sour e EXTERNAL PROVIDER 2021-03-30 06:01:00 Doctor Unassigned, No [facility] RECORDS [facility] MR LUMBAR SPINE WO 2021-03-23 18:05:30 [facility] Costello [facility] MR CERVICAL SPINE WO 2021-03-23 18:05:[address] [facility] [place]y [place] [facility] MR THORACIC SPINE WO 2021-03-23 18:02:56 Shobha Costello [facility] ASSIGNMENT OF BENEFITS 2021-03-23 15:02:30 Doctor Unassigned, No [facility] Encounters Start End Encounter Admission Attending Care Care Encounter Source Date/Time Date/Time Type Type Clinicians Facility Department ID 2021-04-07 2021-04-07 Outpatient Blue RODRIGUEZ [facility] [id number] Univers 14:00:00 14:00:00 KAYE [id number] ity of [facility] 2021-03-30 2021-03-30 Telephone Abilio [facility] [id number] Univers 00:00:00 00:00:00 Esperanza LEE [id number] ity Meredith BLACKMAN [id number] [facility] [phone] [facility] [place] [address] [facility] 2021-03-30 2021-03-30 Orders Doctor COLLINS [id number] Univers 00:00:00 00:00:00 Only Unassigned, BHARGAVI [id number] ity of [facility] [id number] Roddy as [phone] [address] 2021-03-23 2021-03-23 [facility] [id number] Univers 09:10:18 23:59:00 Encounter Ruiqing [place] [id number] ity of [facility] [id number] [facility] [phone] [address] 2021-03-23 2021-03-23 [facility] [id number] Univers 09:07:17 09:09:00 Encounter Ruiqing [place] [id number] ity of [facility] [id number] [facility] [id number] [address] 2021-03-23 2021-03-23 Outpatient R [facility] [id number] Univers 09:04:36 09:06:00 RUIQING ity of [facility] 2021-03-23 2021-03-23 [facility] [id number] Univers 09:04:36 09:06:00 Encounter Ruiqing [place] [id number] ity of [place] [id number] [facility] [id number] [address] 2021-03-23 2021-03-23 Outpatient R [facility] [id number] Univers 00:00:00 00:00:00 RUIQING [id number] ity of [facility] 2021-03-23 2021-03-23 Orders Doctor COLLINS [id number] Univers 00:00:00 00:00:00 Only Unassigned, BHARGAVI [id number] ity of [facility] [id number] Roddy as [id number] [address] 2021-03-14 2021-03-14 [facility] [id number] Univers 15:00:00 16:03:24 Visit Shobha King SPECIALTY [id number] ity of CARE [id number] [facility] AT [phone] [place] erika [address] Results This patient has no known results.
[2021-04-01] MEDS ORDERED: NA CHLORIDE 0.9% 1,000 ML ONE (15:47)
[2021-04-01] MEDS ORDERED: MORPHINE 4 MG/ML SYR ONE (15:55)
[2021-04-01] MEDS ORDERED: ONDANSETRON 4 MG/2 ML VIAL ONE (15:55)
[2021-04-01 15:57] LABS: Absolute Lymphocytes (CBC) 2.2 K/uL (0.7-4.9); Hematocrit 44.5 % (36.0-45.0); Lymphocytes % 16.8 % (15.3-44.8); MPV 7.7 fL (7.6-11.3)
[2021-04-01 16:10] LABS: Potassium 3.8 mmol/L (3.5-5.1)
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
[2021-04-01 19:14] VITALS: TEMP 99.1
[2021-04-01 19:17] VITALS: O2SAT 99
[2021-04-01 19:18] VITALS: BP 111/65
== END 2021-04-01 19:09 | disposition home or self-care (01) ==
LOC: ER 15:10
DX: R07.9 Chest pain, unspecified (principal); R10.9 Unspecified abdominal pain; V59.40XA Driver of pick-up truck or van injured in collision with unspecified motor vehicles in traffic accident, initial encounter; I10 Essential (primary) hypertension; E11.9 Type 2 diabetes mellitus without complications; Z88.8 Allergy status to other drugs, medicaments and biological substances
CPT/HCPCS: 85025; 80048; 36415; 86900; 86850; 86901; 70450; 72125; 71260; 74177; 96375; 96374; 99284; J7030; J2405

== ENCOUNTER 2021-10-15 18:35 | Emergency (ER) | payer OTHER ==
--- OUTSIDE RECORDS SUMMARY | 2021-10-15 18:40 | XMS REPORT | Continuity of Care Document ---
:1990 Author Organization [facility] t Address [address] [place] [address] Care Team Providers Name Role Phone Scott Knox MD Primary Care Physician [phone] MYLES COSTELLO Attending Clinician Unavailable RAYMOND DELGADILLO Attending Clinician Unavailable NEERU RAMIREZ Attending Clinician Unavailable Neeru Ramirez DO Attending Clinician Doctor Unassigned, [place] Attending Clinician Unavailable Scott Knox MD Attending Clinician [phone] Bev Wright MD Attending Clinician HERB FIELDS Attending Clinician Unavailable Herb Fields NP Attending Clinician SCOTT KNOX Attending Clinician Unavailable HERB FIELDS Admitting Clinician Unavailable Payers Payer Name Policy Type Policy Number Effective Date Expiration Date S surgical specialty [facility] [id number] 2018 00:00:00 Problems Condition Condition Condition Status Onset Resolution Last Treating Co mments Source Name Details Category Date Date Treatment Clinician Date ETHAN ETHAN Disease Active Univers (obstructi (obstructi 4-13 it y of ve sleep ve sleep 00:00: [place] apnea) apnea) 00 Medical Branch Essential Essential Disease Active 2019-03 Uni vers hypertensi hypertensi 1-09 it y of on on 00:00: [place] 00 Medical Branch Type 2 Type 2 Disease Active 2019-03 Univers diabetes diabetes 03-13 ity of mellitus mellitus 00:00: [place] without [...] Stop Date Quantity Comments Source Exposure to 2021-10-03 2021-10-13 Not sure [facility] SARS-CoV-2 00:00:00 04:41:00 [facility] (event) Hundred Alcohol intake 2021-10-13 2021-10-13 Ex-drinker [facility] 00:00:00 00:00:00 (finding) [facility] Tobacco use and 2016-12-15 2016-12-15 Smokeless tobacco Un iversity of exposure 00:00:00 00:00:00 non-user [facility] Sex Ass[birth year] Universit y of 00:00:00 00:00:00 [facility] Smoking Status Start Date Stop Date Source Never smoked tobacco [facility] Medications Ordered Filled Start Stop Current Ordering Indication Dosage Frequency Signature Comments Components Source Medication Medication Date Date Medication? Clinician (SIG) Name Name NaCl 0.9% 2021- No 1000mL at 999 Uni vers (NS) bolus 10-13 mL/hr, ity of infusion 11:00: 10:41 1,000 mL, [place] 1,000 mL 00 :00 IV Medical Infusion, Branch ONCE, 1 dose, On [facility] 10/13/21 at 0600, BRANDON dexamethaso 2021- No 10mg 10 mg, Uni vers ne sod phos 10-13 Slow IV ity of PF 10:00: 09:53 Push, [place] injection 00 :00 ONCE, 1 Medical 10 mg dose, On [facility] 10/13/21 at 0500, 1 mL metoclopram 2021- No 10mg 10 mg, Uni vers josephine HCl 10-13 Slow IV ity of (REGLAN) 10:00: 09:53 Push, [place] injection 00 :00 ONCE, 1 Medical 10 mg dose, On [facility] 10/13/21 at 0500, BRANDON SITagliptin 0 Yes [id number] 100mg Take 1 Univers (JANUVIA) 8-09 tablet by ity o f 100 mg 00:00: mouth [place] tablet 00 every Medical morning. Branch lisinopriL Yes [id number] 20mg Take 1 U nivers 20 mg 8-09 tablet by ity of tablet 00:00: mouth in [place] 00 the Medical morning. Branch pioglitazon 0 Yes [id number] 15mg Take 1 Univers e 15 mg 8-09 tablet by ity of tablet 00:00: mouth in [place] 00 the Medical morning. Branch SITagliptin 0 Yes [id number] 100mg Take 1 Univers (JANUVIA) 8-09 tablet by ity o f 100 mg 00:00: mouth [place] tablet 00 every Medical morning. Branch lisinopriL 0 Yes [id number] 20mg Take 1 U nivers 20 mg 8-09 tablet by ity of tablet 00:00: mouth in [place] 00 the Medical morning. Branch pioglitazon 2021-0 Yes [id number] 15mg Take 1 Univers e 15 mg 8-09 tablet by ity of tablet 00:00: mouth in [place] 00 the Medical morning. Branch SITagliptin 0 Yes [id number] 100mg Take 1 Univers (JANUVIA) 8-09 tablet by ity o f 100 mg 00:00: mouth [place] tablet 00 every Medical morning. Branch lisinopriL 0 Yes [id number] 20mg Take 1 U nivers 20 mg 8-09 tablet by ity of tablet 00:00: mouth in [place] 00 the Medical morning. Branch pioglitazon 2021-0 Yes [id number] 15mg Take 1 Univers e 15 mg 8-09 tablet by ity of tablet 00:00: mouth in [place] 00 the Medical morning. Branch SITagliptin Yes [id number] 100mg Take 1 Univers (JANUVIA) 8-09 tablet by ity o f 100 mg 00:00: mouth [place] tablet 00 every Medical morning. Branch lisinopriL Yes [id number] 20mg Take 1 U nivers 20 mg 8-09 tablet by ity of tablet 00:00: mouth in [place] 00 the Medical morning. Branch pioglitazon Yes [id number] 15mg Take 1 Univers e 15 mg 8-09 tablet by ity of tablet 00:00: mouth in [place] 00 the Medical morning. Branch ondansetron 2021- No 4mg 4 mg, Univ ers (ZOFRAN-ODT 09-23 Oral, ity of ) 17:30: 16:31 ONCE, 1 [place] disintegrat 00 :00 dose, On Medi miles ing tablet Fri Branch 4 mg 09/23/21 at 1230, Routine ondansetron Yes [id number] 4mg Take 1 Univers 4 mg 7-22 tablet by ity of disintegrat 00:00: mouth [place] ing tablet 00 every 8 Medica l (eight) Branch hours as needed for Nausea and Vomiting (N/V). ondansetron Yes [id number] 4mg Take 1 Univers 4 mg 7-22 tablet by ity of disintegrat 00:00: mouth [place] ing tablet 00 every 8 Medica l (eight) Branch hours as needed for Nausea and Vomiting (N/V). ondansetron 0 Yes [id number] 4mg Take 1 Univers 4 mg 7-22 tablet by ity of disintegrat 00:00: mouth [place] ing tablet 00 every 8 Medica l (eight) Branch hours as needed for Nausea and Vomiting (N/V). ondansetron 2021-0 Yes [id number] 4mg Take 1 Univers 4 mg 7-22 tablet by ity of disintegrat 00:00: mouth [place] ing tablet 00 every 8 Medica l (eight) Branch hours as needed for Nausea and Vomiting (N/V). ondansetron 2021-0 Yes [id number] 4mg Take 1 Univers 4 mg 7-22 tablet by ity of disintegrat 00:00: mouth [place] ing tablet 00 every 8 Medica l (eight) Branch hours as needed for Nausea and Vomiting (N/V). ondansetron Yes [id number] 4mg Take 1 Univers 4 mg 7-22 tablet by ity of disintegrat 00:00: mouth [place] ing tablet 00 every 8 Medica l (eight) Branch hours as needed for Nausea and Vomiting (N/V). Cyanocobala Yes [id number] 1000ug Take 1 Univers min 1,000 3-25 tablet by ity o f mcg tablet 00:00: mouth [place] 00 daily. [facility] Branch Cyanocobala 0 Yes [id number] 1000ug Take 1 Univers min 1,000 3-25 tablet by ity o f mcg tablet 00:00: mouth [place] 00 daily. [facility] Cyanocobala 0 Yes [id number] 1000ug Take 1 Univers min 1,000 3-25 tablet by ity o f mcg tablet 00:00: mouth 00 daily. [facility] Cyanocobala 0 Yes [id number] 1000ug Take 1 Univers min 1,000 3-25 tablet by ity o f mcg tablet 00:00: mouth [place] 00 daily. [facility] Cyanocobala Yes [id number] 1000ug Take 1 Univers min 1,000 3-25 tablet by ity o f mcg tablet 00:00: mouth [place] 00 daily. [facility] Cyanocobala 0 Yes [id number] 1000ug Take 1 Univers min 1,000 3-25 tablet by ity o f mcg tablet 00:00: mouth 00 daily. [facility] Cyanocobala 0 Yes [id number] 1000ug Take 1 Univers min 1,000 3-25 tablet by ity o f mcg tablet 00:00: mouth [place] 00 daily. [facility] Cyanocobala 0 Yes [id number] 1000ug Take 1 Univers min 1,000 3-25 tablet by ity o f mcg tablet 00:00: mouth [place] 00 daily. [facility] CONCERTA 36 2021-0 Yes 1{tbl} Take 1 Un jaquelin mg 24 hr 2-24 tablet by ity of tablet 00:00: mouth [place] 00 daily. [facility] CONCERTA 36 2021-0 Yes 1{tbl} Take 1 Un jaquelin mg 24 hr 2-24 tablet by ity of tablet 00:00: mouth [place] 00 daily. [facility] CONCERTA 36 Yes 1{tbl} Take 1 Un jaquelin mg 24 hr 2-24 tablet by ity of tablet 00:00: mouth [place] 00 daily. [facility] Branch CONCERTA 36 Yes 1{tbl} Take 1 Un jaquelin mg 24 hr 2-24 tablet by ity of tablet 00:00: mouth [place] 00 daily. [facility] Branch CONCERT 36 Yes 1{tbl} Take 1 Un jaquelin mg 24 hr 2-24 tablet by ity of tablet 00:00: mouth [place] 00 daily. [facility] Branch CONCERTA 36 Yes 1{tbl} Take 1 Un jaquelin mg 24 hr 2-24 tablet by ity of tablet 00:00: mouth [place] 00 daily. [facility] Branch CONCERTA 36 Yes 1{tbl} Take 1 Un jaquelin mg 24 hr 2-24 tablet by ity of tablet 00:00: mouth [place] 00 daily. [facility] Branch CONCERT 36 Yes 1{tbl} Take 1 Un jaquelin mg 24 hr 2-24 tablet by ity of tablet 00:00: mouth [place] 00 daily. [facility] Branch pioglitazon Yes [id number] 15mg Take 1 Univers e 15 mg 2-03 tablet by ity of tablet 00:00: mouth [place] 00 daily. [facility] Branch pioglitazon Yes [id number] 15mg Take 1 Univers e 15 mg 2-03 tablet by ity of tablet 00:00: mouth [place] 00 daily. Medical Branch pioglitazon Yes [id number] 15mg Take 1 Univers e 15 mg 2-03 tablet by ity of tablet 00:00: mouth [place] 00 daily. [facility] Branch pioglitazon Yes [id number] 15mg Take 1 Univers e 15 mg 2-03 tablet by ity of tablet 00:00: mouth [place] 00 daily. [facility] pioglitazon 2021- No [id number] 15mg Take 1 Univers e 15 mg 2-03 08-08 tablet by ity of tablet 00:00: 00:00 mouth [place] 00 :00 daily. Medical Branch Cyanocobala 2021- No [id number] 1000ug Take 1 Univers min 1,000 1-10 03-25 tablet by ity of mcg tablet 00:00: 00:00 mouth [place] 00 :00 daily. Medical Branch lisinopriL 2020-03 Yes [id number] 20mg Take 1 U nivers 20 mg 2-17 tablet by ity of tablet 00:00: mouth [place] 00 daily. Medical Branch lisinopriL 2020-03 Yes [id number] 20mg Take 1 U nivers 20 mg 2-17 tablet by ity of tablet 00:00: mouth [place] 00 daily. Medical Branch lisinopriL 2020-03 Yes [id number] 20mg Take 1 U nivers 20 mg 2-17 tablet by ity of tablet 00:00: mouth [place] 00 daily. Medical Branch lisinopriL 2020-03 Yes [id number] 20mg Take 1 U nivers 20 mg 2-17 tablet by ity of tablet 00:00: mouth [place] 00 daily. Medical Branch lisinopriL 2020-03- No [id number] 20mg Take 1 Univers 20 mg 2-17 08-08 tablet by ity of tablet 00:00: 00:00 mouth [place] 00 :00 daily. Medical Branch JANUVIA 100 2020-03 Yes [id number] TAKE 1 Univers mg tablet 2-16 TABLET BY ity o f 00:00: MOUTH [place] 00 DAILY Medical Branch JANUVIA 100 2020-03 Yes [id number] TAKE 1 Univers mg tablet 2-16 TABLET BY ity o f 00:00: MOUTH [place] 00 DAILY Medical Branch JANUVIA 100 2020-03 Yes [id number] TAKE 1 Univers mg tablet 2-16 TABLET BY ity o f 00:00: MOUTH [place] 00 DAILY Medical Branch JANUVIA 100 2020-03 Yes [id number] TAKE 1 Univers mg tablet 2-16 TABLET BY ity o f 00:00: MOUTH [place] 00 DAILY Medical Branch JANUVIA 100 2020-03 2022- No [id number] TAKE 1 Univers mg tablet 2-16 08-08 TABLET BY ity of 00:00: 00:00 MOUTH [place] 00 :00 DAILY Medical Branch tiZANidine 2020-03 Yes [id number] 4mg Take 1 U nivers 4 mg tablet 0-27 tablet by ity of 00:00: mouth [place] 00 every 8 Medical (eight) Branch hours as needed for Pain (scale 7-10). tiZANidine 2020-03 Yes [id number] 4mg Take 1 U nivers 4 mg tablet 0-27 tablet by ity of 00:00: mouth [place] 00 every 8 Medical (eight) Branch hours as needed for Pain (scale 7-10). tiZANidine 2020-03 Yes [id number] 4mg Take 1 U nivers 4 mg tablet 0-27 tablet by ity of 00:00: mouth [place] 00 every 8 Medical (eight) Branch hours as needed for Pain (scale 7-10). tiZANidine 2020-03 Yes [id number] 4mg Take 1 U nivers 4 mg tablet 0-27 tablet by ity of 00:00: mouth [place] 00 every 8 Medical (eight) Branch hours as needed for Pain (scale 7-10). tiZANidine 2020-03 Yes [id number] 4mg Take 1 U nivers 4 mg tablet 0-27 tablet by ity of 00:00: mouth [place] 00 every 8 Medical (eight) Branch hours as needed for Pain (scale 7-10). tiZANidine 2020-03 Yes [id number] 4mg Take 1 U nivers 4 mg tablet 0-27 tablet by ity of 00:00: mouth [place] 00 every 8 Medical (eight) Branch hours as needed for Pain (scale 7-10). tiZANidine 2020-03 Yes [id number] 4mg Take 1 U nivers 4 mg tablet 0-27 tablet by ity of 00:00: mouth [place] 00 every 8 Medical (eight) Branch hours as needed for Pain (scale 7-10). tiZANidine 2020-03 Yes [id number] 4mg Take 1 U nivers 4 mg tablet 0-27 tablet by ity of 00:00: mouth [place] 00 every 8 Medical (eight) Branch hours as needed for Pain (scale 7-10). ibuprofen 2020-03- No [id number] 800mg Take 1 Univers 800 mg 0-27 03-25 tablet by ity of tablet 00:00: 00:00 mouth 2 [place] 00 :00 (two) Medical times Branch daily with meals as needed for Pain (scale 4-6). gabapentin 2020-03- No [id number] TAKE 1 TO Univers 100 mg 0-18 03-25 3 CAPSULES ity of capsule 00:00: 00:00 BY MOUTH 1 [place] as 00 :00 TIME AT Medical NIGHT Branch NEEDED levothyroxi [...] mg Cap 11:40: mouth [place] 59 daily. [facility] Branch cariprazine Yes 1.5mg Take 1.5 U nivers (VRAYLAR) 9-21 mg by ity of 1.5 mg Cap 11:40: mouth [place] 59 daily. [facility] doxepin 50 2020-0 2021- No Univer s mg capsule 11-15 03-25 ity of 00:00: 00:00 [place] 00 :00 [facility] Branch FLUoxetine 2020-0 Yes Univers 20 mg 8-31 ity of capsule 00:00: [place] 00 [facility] FLUoxetine 2020-0 Yes Univers 20 mg 8-31 ity of capsule 00:00: 00 [facility] FLUoxetine 2020-0 Yes Univers 20 mg 8-31 ity of capsule 00:00: 00 [facility] FLUoxetine 2020-0 Yes Univers 20 mg 8-31 ity of capsule 00:00: [place] 00 [facility] FLUoxetine 2020-0 Yes Univers 20 mg 8-31 ity of capsule 00:00: [place] 00 [facility] FLUoxetine 2020-0 Yes Univers 20 mg 8-31 ity of capsule 00:00: [place] 00 [facility] FLUoxetine 2020-0 Yes Univers 20 mg 8-31 ity of capsule 00:00: [place] 00 [facility] FLUoxetine 2020-0 Yes Univers 20 mg 8-31 ity of capsule 00:00: [place] 00 [facility] spironolact 2020-0 2022- No [id number] 100mg Take 1 Univers one 100 mg 8-10 03-25 tablet by ity of tablet 00:00: 00:00 mouth 2 [place] 00 :00 (two) Medical times Branch daily. naltrexone- 2020-0 2021- No [id number] 2{tbl} Take 2 Univers bupropion 6-15 03-25 tablets by ity of (CONTRAVE) 00:00: 00:00 mouth 2 [place] as 8-90 mg per 00 :00 (two) Medical tablet times Branch daily. zolpidem 5 2020- Yes [id number] 5mg Take 1 Un jaquelin mg tablet 5-17 tablet by ity o f 00:00: mouth at [place] 00 bedtime as Medical needed for Branch Insomnia. zolpidem 5 2020- Yes [id number] 5mg Take 1 Un jaquelin mg tablet 5-17 tablet by ity o f 00:00: mouth at [place] 00 bedtime as Medical needed for Branch Insomnia. zolpidem 5 2020- Yes [id number] 5mg Take 1 Un jaquelin mg tablet 5-17 tablet by ity o f 00:00: mouth at [place] 00 bedtime as Medical needed for Branch Insomnia. zolpidem 5 2020- Yes [id number] 5mg Take 1 Un jaquelin mg tablet 5-17 tablet by ity o f 00:00: mouth at [place] 00 bedtime as Medical needed for Branch Insomnia. zolpidem 5 Yes [id number] 5mg Take 1 Un jaquelin mg tablet 5-17 tablet by ity o f 00:00: mouth at [place] 00 bedtime as Medical needed for Branch Insomnia. zolpidem 5 Yes [id number] 5mg Take 1 Un jaquelin mg tablet 5-17 tablet by ity o f 00:00: mouth at [place] 00 bedtime as Medical needed for Branch Insomnia. zolpidem 5 2020- Yes [id number] 5mg Take 1 Un jaquelin mg tablet 5-17 tablet by ity o f 00:00: mouth at [place] 00 bedtime as Medical needed for Branch Insomnia. zolpidem 5 2020-0 Yes [id number] 5mg Take 1 Un jaquelin mg tablet 5-17 tablet by ity o f 00:00: mouth at [place] 00 bedtime as Medical needed for Branch Insomnia. Immunizations Ordered Filled Immunization Date Status Comments [facility] e Immunization Name Name SARS-COV-2 COVID-19 2021-05-27 Completed Unive rsity of PFIZER CHRIS-SUCROSE 00:00:00 [place] Medical VACCINE (MEADOWS TOP) Branch SARS-COV-2 COVID-19 2021-05-27 Completed Unive rsity of PFIZER CHRIS-SUCROSE 00:00:00 [place] Medical VACCINE (MEADOWS TOP) Branch SARS-COV-2 COVID-19 2021-05-27 Completed Unive rsity of PFIZER CHRIS-SUCROSE 00:00:00 [place] Medical VACCINE (MEADOWS TOP) Branch SARS-COV-2 COVID-19 2021-05-27 Completed Unive rsity of PFIZER CHRIS-SUCROSE 00:00:00 [place] Medical VACCINE (MEADOWS TOP) Branch SARS-COV-2 COVID-19 2021-05-27 Completed Unive rsity of PFIZER CHRIS-SUCROSE 00:00:00 [place] Medical VACCINE (MEADOWS TOP) Branch SARS-COV-2 COVID-19 2021-05-27 Completed Unive rsity of PFIZER CHRIS-SUCROSE 00:00:00 [place] Medical VACCINE (MEADOWS TOP) Branch SARS-COV-2 COVID-19 2021-05-27 Completed Unive rsity of PFIZER CHRIS-SUCROSE 00:00:00 [place] Medical VACCINE (MEADOWS TOP) Branch SARS-COV-2 COVID-19 2021-05-27 Completed Unive rsity of PFIZER CHRIS-SUCROSE 00:00:00 [place] Medical VACCINE (MEADOWS TOP) Branch SARS-COV-2 COVID-19 2020-12-09 Completed Unive rsity of PFIZER VACCINE 00:00:00 [place] Medi miles Branch SARS-COV-2 COVID-19 2020-12-09 Completed Unive rsity of PFIZER VACCINE 00:00:00 [place] Medi miles Branch SARS-COV-2 COVID-19 2020-12-09 Completed Unive rsity of PFIZER VACCINE 00:00:00 [place] Medi miles Branch SARS-COV-2 COVID-19 2020-12-09 Completed Unive rsity of PFIZER VACCINE 00:00:00 [place] Medi miles Branch SARS-COV-2 COVID-19 2020-12-09 Completed Unive rsity of PFIZER VACCINE 00:00:00 [place] Medi miles Branch SARS-COV-2 COVID-19 2020-12-09 Completed Unive rsity of PFIZER VACCINE 00:00:00 [place] Medi miles Branch SARS-COV-2 COVID-19 2020-12-09 Completed Unive rsity of PFIZER VACCINE 00:00:00 [facility] SARS-COV-2 COVID-19 2020-12-09 Completed Unive rsity of PFIZER VACCINE 00:00:00 [facility] SARS-COV-2 COVID-19 2020-11-17 Completed Unive rsity of PFIZER VACCINE 00:00:00 [facility] SARS-COV-2 COVID-19 2020-11-17 Completed Unive rsity of PFIZER VACCINE 00:00:00 [facility] SARS-COV-2 COVID-19 2020-11-17 Completed Unive rsity of PFIZER VACCINE 00:00:00 [facility] SARS-COV-2 COVID-19 2020-11-17 Completed Unive rsity of PFIZER VACCINE 00:00:00 [facility] SARS-COV-2 COVID-19 2020-11-17 Completed Unive rsity of PFIZER VACCINE 00:00:00 [facility] SARS-COV-2 COVID-19 2020-11-17 Completed Unive rsity of PFIZER VACCINE 00:00:00 [facility] SARS-COV-2 COVID-19 2020-11-17 Completed Unive rsity of PFIZER VACCINE 00:00:00 [facility] SARS-COV-2 COVID-19 2020-11-17 Completed Unive rsity of PFIZER VACCINE 00:00:00 [facility] Td 2019-09-03 Completed University of 00:00:00 [facility] Td 2019-09-03 Completed University of 00:00:00 [facility] Td 2019-09-03 Completed University of 00:00:00 [facility] Td 2019-09-03 Completed University of 00:00:00 [facility] Td 2019-09-03 Completed University of 00:00:00 [facility] Td 2019-09-03 Completed University of 00:00:00 [facility] Td 2019-09-03 Completed University of 00:00:00 [facility] Td 2019-09-03 Completed University of 00:00:00 [facility] Twinrix (hep a/hep 2018-05-03 Completed Univer sity of b) 00:00:00 [facility] Twinrix (hep a/hep 2018-05-03 Completed Univer sity of b) 00:00:00 [place] [facility] Twinrix (hep a/hep 2018-05-03 Completed Univer sity of b) 00:00:00 [place] [facility] Twinrix (hep a/hep 2018-05-03 Completed Univer sity of b) 00:00:00 [place] [facility] Twinrix (hep a/hep 2018-05-03 Completed Univer sity of b) 00:00:00 [place] [facility] Twinrix (hep a/hep 2018-05-03 Completed Univer sity of b) 00:00:00 [place] [facility] Twinrix (hep a/hep 2018-05-03 Completed Univer sity of b) 00:00:00 [place] [facility] Twinrix (hep a/hep 2018-05-03 Completed Univer sity of b) 00:00:00 [facility] Branch Twinrix (hep a/hep 2017-12-03 Completed Univer sity of b) 00:00:00 [facility] Branch Twinrix (hep a/hep 2017-12-03 Completed Univer sity of b) 00:00:00 [facility] Branch Twinrix (hep a/hep 2017-12-03 Completed Univer sity of b) 00:00:00 [place] [facility] Twinrix (hep a/hep 2017-12-03 Completed Univer sity of b) 00:00:00 [facility] Branch Twinrix (hep a/hep 2017-12-03 Completed Univer sity of b) 00:00:00 [facility] Branch Twinrix (hep a/hep 2017-12-03 Completed Univer sity of b) 00:00:00 [place] [facility] Twinrix (hep a/hep 2017-12-03 Completed Univer sity of b) 00:00:00 [place] [facility] Twinrix (hep a/hep 2017-12-03 Completed Univer sity of b) 00:00:00 [facility] Branch Twinrix (hep a/hep 2017-11-02 Completed Univer sity of b) 00:00:00 [facility] Branch Twinrix (hep a/hep 2017-11-02 Completed Univer sity of b) 00:00:00 [facility] Branch Twinrix (hep a/hep 2017-11-02 Completed Univer sity of b) 00:00:00 [facility] Branch Twinrix (hep a/hep 2017-11-02 Completed Univer sity of b) 00:00:00 [place] [facility] Twinrix (hep a/hep 2017-11-02 Completed Univer sity of b) 00:00:00 [place] [facility] Twinrix (hep a/hep 2017-11-02 Completed Univer sity of b) 00:00:00 [place] [facility] Twinrix (hep a/hep 2017-11-02 Completed Univer sity of b) 00:00:00 [place] [facility] Twinrix (hep a/hep 2017-11-02 Completed Univer sity of b) 00:00:00 [facility] Vital Signs Vital Name Observation Time Observation Value Comments Source Systolic blood 2021-10-13 10:00:00 130 mm[Hg] Univer sity of pressure [facility] Diastolic blood 2021-10-13 10:00:00 69 mm[Hg] Unive rsity of pressure [facility] Heart rate 2021-10-13 10:00:00 82 /min [facility] Respiratory rate 2021-10-13 10:00:00 18 /[facility] 2021-10-13 10:00:00 97 /min University of Arterial blood by [place] [employer] Pulse oximetry Branch Body temperature 2021-10-13 09:43:00 36.5 [facility] Body weight 2021-10-13 09:43:00 99.791 kg [facility] BMI 2021-10-13 09:43:00 44.43 kg/m2 [facility] Systolic blood 2021-09-23 17:00:00 142 mm[Hg] Univer sity of pressure [facility] Diastolic blood 2021-09-23 17:00:00 101 mm[Hg] Unive rsity of pressure [facility] Heart rate 2021-09-23 17:00:00 88 /min [facility] Respiratory rate 2021-09-23 17:00:00 25 /min Univ ersity [facility] Oxygen saturation in 2021-09-23 17:00:00 96 /min University of Arterial blood by [place] [employer] Pulse oximetry Branch Body temperature 2021-09-23 15:43:[address] [facility] Body height 2021-09-23 15:43:00 149.9 cm Universi ty of [place] [facility] Body weight 2021-09-23 15:43:00 99.791 kg Universi ty of [facility] BMI 2021-09-23 15:43:00 44.43 kg/m2 Universi ty of [facility] Systolic blood 2021-05-27 14:20:00 133 mm[Hg] Univer sity of pressure [facility] Diastolic blood 2021-05-27 14:20:00 66 mm[Hg] Unive rsity of pressure [facility] Heart rate 2021-05-27 14:20:00 75 /min Universi ty of [facility] Body temperature 2021-05-27 14:20:[address] [facility] Res[facility] rate 2021-05-27 14:20:00 16 /min [facility] Body height 2021-05-27 14:20:00 149.9 cm Universi ty of [facility] Body weight 2021-05-27 14:20:00 97.07 kg Universi ty of [place] [facility] BMI 2021-05-27 14:20:00 43.22 kg/m2 Universi ty of [facility] [place] Oxygen saturation in 2021-05-27 14:20:00 100 /min [facility] Arterial blood by [facility] Pulse oximetry Branch Procedures Procedure Date / Time Performed Performing Clinician [facility] e NOTICE OF PRIVACY 2021-10-13 10:16:57 Doctor Unassigned, No [facility] CT HEAD WO CONTRAST 2021-10-13 10:14:39 Neeru Ramirez [facility] POCT TEST 2021-10-13 09:55:00 Neeru Ramirez [facility] COMP. METABOLIC PANEL 2021-10-13 09:51:00 Neeru Ramirez [facility] ([id number]) [facility] CONSENT/REFUSAL FOR 2021-10-13 09:35:04 Doctor Unassigned, No [facility] DI[facility] AND Name [facility] TREATMENT EXTERNAL PROVIDER 2021-09-28 05:01:00 Doctor Unassigned, No [facility] RECORDS Name [facility] ABG+COOX+NA+K+GLU+CA2+ 2021-09-23 16:45:00 Herb Fields [facility] XR CHEST 2 VW 2021-09-23 16:25:00 Herb Fields [facility] CONSENT/REFUSAL FOR 2021-09-23 15:36:08 Doctor Unassigned, No Un [facility] DIAGNOSIS AND Name [facility] TREATMENT SARS-COV-2 COVID-19 2021-05-27 15:06:09 Scott Knox [facility] VACCINE 12 [facility] YRS+,0.3ML,IM (PFIZER - MEADOWS TOP) POCT HEMOGLOBIN A1C 2021-05-27 14:50:00 [facility] TEST [facility] Encounters Start End Encounter Admission Attending Care Care Encounter Source Date/Time Date/Time Type Type Clinicians Facility Department ID 2021-11-14 2021-11-14 Outpatient R TRANG [facility] [id number] Univers 11:30:00 11:30:00 RUIQING [id number] [facility] 2021-10-28 2021-10-28 Outpatient ELIE [facility] [id number] Univers 11:30:00 11:30:00 RAYMOND [id number] [facility] 2021-10-13 2021-10-13 [facility] [id number] Univers 04:36:00 05:42:00 NEERU [facility] 2021-10-13 2021-10-13 [facility] [id number] Univers 04:36:00 05:42:00 Neeru WILSON [id number] ity of [place] 4.2.7.2.686 [facility] [id number] [facility] 084 Branch 2021-10-13 2021-10-13 Orders Doctor COLLINS [id number] Univers 00:00:00 00:00:00 Only Unassigned, BHARGAVI [id number] ity of [place] [facility] 4.2.7.2.686 [facility] [id number] [facility] 009 Branch 2021-10-10 2021-10-10 [facility] [id number] Univers 00:00:00 00:00:00 Scott ROSA [id number] ity of [place] 4.2.7.2.686 [facility] [id number] [address] [facility] 2021-10-10 2021-10-10 Refsadie Bev Jacobs [facility] [id number] Univers 00:00:00 00:00:00 MULTISPEC [id number] ity of [place] 4.2.7.2.686 [facility] [id number] [address] [facility] 2021-09-28 2021-09-28 Orders Doctor KARINA [id number] Univers 00:00:00 00:00:00 Only Unassigned, BHARGAVI [id number] ity of [place] [facility] 4.2.7.2.686 Roddy as [id number] [facility] 009 Hundred 2021-09-23 2021-09-23 Emergency X [facility] ERT [id number] Univers 10:45:00 12:38:00 HERB [facility] 2021-09-23 2021-09-23 Emergency [facility] [id number] Univers 10:45:00 12:38:00 Herb WILSON [id number] ity of [place] 4.2.7.2.686 [facility] [id number] [facility] 084 Branch 2021-09-23 2021-09-23 Orders Doctor KARINA [id number] [id number] Univers 00:00:00 00:00:00 Only Unassigned, BHARGAVI 350.1.13.10 ity of [place] [facility] 4.2.7.2.686 Roddy as [id number] [address] 2021-09-02 2021-09-02 [facility] [id number] Univers 12:30:00 12:30:00 SCOTT anderson [facility] 2021-08-22 2021-08-22 Outpatient R KNOX, [facility] [id number] Univers 10:00:00 10:00:00 SCOTT [facility] 2021-05-27 2021-05-27 Office [facility] [id number] Univers 09:15:00 09:45:00 Visit [facility] 350.1.13.10 Mauricio BLACKMAN 4.2.7.2.686 [facility] [id number] [address] [facility] 2021-05-27 2021-05-27 [facility] [id number] Univers 09:15:00 09:15:00 [facility] Results Test Description Test Time Test Comments Results Result Comments Source COMP. METABOLIC PANEL (61848) 2021-10-13 10:15:47 Test Item Value Reference Range Interpretation Comme nts NA (test code = 6632364984) 135 mmol/L 135-145 K (test code = 9518779509) 4.4 mmol/L 3.5-5 CL (test code = 2108547717) 100 mmol/L 98-108 CO2 TOTAL (test code = 9979226949) 27 mmol/L 23-31 AGAP (test code = 5637866326) 2-16 BUN (test code = 4373805073) 12 mg/dL 7-23 GLUCOSE (test code = 1469968202) 161 mg/dL 70-110 H CREATININE (test code = 0.67 mg/dL 0.5-1.04 1488301158) TOTAL BILI (test code = 1.1 mg/dL 0.1-1.6 9537522027) CALCIUM (test code = 7452059219) 9.7 mg/dL 8.6-10.6 T PROTEIN (test code = 3902896735) 6.9 g/dL 6.3-8.2 ALBUMIN (test code = 2169348355) 4.6 g/dL 3.5-5 ALK PHOS (test code = 4391014752) 74 U/L 34-122 ALTv (test code = 1742-6) 50 U/L 5-35 H AST(SGOT) (test code = 9149070654) 40 U/L 13-40 eGFR (test code = 2979409892) mL/min/1.73m2 ANTHONY (test code = ANTHONY) Association of Glomerular Filtration Rate (GFR) and Staging of Kidney Disease* + +-------- + ------+| GFR (mL/min/1.73 m2) ?| With Kidney Damage ?| ?Without Kidney Damage+ +-- + +| ?>90 ?| ?Stage one ?| ? Normal ?+ +------- + -------+| ?60-89 ?| ?Stage two ?| ? Decreased GFR ? + +-------- + ------+| ?30-59 ?| ?Stage three ?| ? Stage three ? + +-------- + ------+| ?15-29 ?| ?Stage four ? | ? Stage four ?+ +------- + -------+| ?<15 (or dialysis) ? ?| ?Stage five ? | ? Stage five ?+ +------- + -------+ *Each stage assumes the associated GFR level has been in effect for at least three months. ?Stages 1 to 5, with or without kidney disease, indicate chronic kidney disease. Notes: Determination of stages one and two (with eGFR >59mL/min/1.73 m2) requires estimation of kidney damage for at least three months as defined by structural or functional abnormalities of the kidney, manifested by either:Pathological abnormalities or Markers of kidney damage (including abnormalities in the composition of the blood or urine or abnormalities in imaging tests). Lab Interpretation (test code = Abnormal 80447-4) [facility] [id number] 09:55:00 Test Item Value Reference Range Interpretation Comments POCT PREG (test code = 1605) Negative On board controls acceptable with Present C Line (test code = 3574) POCT PREG LOT # (test code = 3575) [id number] POCT PREG TEST DATE (test 01/02/23 code = 3576) Lab Interpretation (test code = Normal 14900-4) [facility] HEMOGLOBIN A1C [id number] 14:51:00 Test Item Value Reference Range Interpretation Comments POCT HBA1C (test code = 4548-4) 5.8 % 4-6 [facility]"
[2021-10-15] MEDS ORDERED: dexAMETHasone 10 MG/ML VIAL ONE (19:21)
[2021-10-15] MEDS ORDERED: METOCLOPRAMIDE 10 MG/2mL INJ ONE (19:21)
[2021-10-15] MEDS ORDERED: KETOROLAC 30 MG/ML INJ ONE (19:21)
[2021-10-15] MEDS ORDERED: NA CHLORIDE 0.9% 250 ML ONE (19:22)
--- NOTE | 2021-10-15 19:48 | RAD REPORT ---
EXAM DESCRIPTION: CT - Head Brain Wo Cont - 10/15/2021 7:31 pm CLINICAL HISTORY: Headache COMPARISON: March 2021 TECHNIQUE: Computed axial tomography of the head was obtained. IV contrast was not requested. All CT scans are performed using dose optimization technique as appropriate and may include automated exposure control or mA/KV adjustment according to patient size. FINDINGS: An intracranial bleed is not seen . The ventricles are normal in caliber. No significant hypodense areas within the brain visualized No extra-axial fluid collection is noted. Fluid within the sinuses/ mastoids is not seen. IMPRESSION: No acute intracranial abnormality is seen. If patient's symptoms persist MRI of the bra in would be recommended.
--- NOTE | 2021-10-15 20:01 | EDPHYS ---
Physician Documentation [facility] Name: Lupe Yeager Age: 31 yrs Sex: Female : 1990 Arrival Date: 10/15/2021 Time: 18:38 Bed 26 Private MD: ED Physician Atif Gomes HPI: 10/15 18:49 This 31 yrs old Female presents to ER via Ambulatory with complaints of Headache. jmm 18:49 The patient complains of pain to the forehead. Onset: The symptoms/episode jmm began/occurred gradually, 2 week(s) ago. Associated signs and symptoms: Pertinent negatives: altered mental status, fever, malaise, nausea, neck stiffness, paresthesias, Photophobia rash, sinus congestion. The symptoms are alleviated by nothing. the symptoms are aggravated by movement, change in position. It is unknown whether or not the patient has had similar symptoms in the past. Historical: - Allergies: 18:44 Benadryl; hb - Home Meds: 18:44 Januvia Oral [Active]; levothyroxine 25 mcg tab 1 tab once daily [Active]; lisinopril hb 20 mg Oral tab 1 tab once daily [Active]; - PMHx: 18:44 Diabetes - NIDDM; High Cholesterol; Hypertension; Hypothyroidism; liver disease hb (autoimmune); Polycythemia Vera; - PSHx: 18:44 section; Ligation of fallopian tube; liver biopsy; hb - Immunization history:: Adult Immunizations up to date. - Social history:: Smoking status: Patient denies any tobacco usage or history of. ROS: 18:49 Constitutional: Negative for fever, chills, and weight loss. jmm 18:49 Cardiovascular: Negative for chest pain, palpitations, and edema, Respiratory: Negative for shortness of breath, cough, wheezing, and pleuritic chest pain, Abdomen/GI: Negative for abdominal pain, nausea, vomiting, diarrhea, and constipation. 18:49 ENT: Positive for 18:49 Neuro: Positive for headache. 18:49 All other systems are negative. Exam: 18:49 Constitutional: This is a well developed, well nourished patient who is awake, alert, jmm and in no acute distress. Head/Face: atraumatic. Eyes: EOMI, no conjunctival erythema appreciated ENT: Moist Mucus Membranes Neck: Trachea midline, Supple Chest/axilla: Normal chest wall appearance and motion. Cardiovascular: Regular rate and rhythm. No edema appreciated Respiratory: Normal respirations, no respiratory distress appreciated Abdomen/GI: Non distended Back: Normal ROM Skin: General appearance color normal MS/ Extremity: Moves all extremities, no obvious deformities appreciated, no edema noted to the lower extremities Neuro: Awake and alert Psych: Behavior is normal, Mood is normal, Patient is cooperative and pleasant Vital Signs: 18:42 BP 158 / 90; Pulse 88; Resp 16; Temp 98.1(O); Pulse Ox 99% on R/A; Weight 99.79 kg; hb Height 5 ft. (152.40 cm); Pain 8/10; 20:16 BP 123 / 66; Pulse 72; Resp 18 S; Pulse Ox 94% on R/A; Pain 5/10; as6 18:42 Body Mass Index 42.97 (99.79 kg, 152.40 cm) hb MDM: 18:49 Patient medically screened. [facility] 19:59 Data reviewed: vital signs, nurses notes. Counseling: I had a detailed discussion with [facility] the patient and/or guardian regarding: the historical points, exam findings, and any diagnostic results supporting the discharge/admit diagnosis, radiology results, the need for outpatient follow up, to return to the emergency department if symptoms worsen or persist or if there are any questions or concerns that arise at home. ED course: CT negative. I do not currently suspect SAH or Meningitis. Patient advised to follow up with neuro for further evaluation. Patient is otherwise given strict return precautions. patient understood and agrees with the plan of care. . 10/15 18:51 Order name: CT Head Brain wo Cont; Complete Time: 19:50 [facility] 10/15 18:50 Order name: Saline Lock; Complete Time: 19:28 [facility] Administered Medications: 18:51 CANCELLED (Duplicate Order): NS 0.9% 500 ml IV at bolus once [facility] 19:21 Drug: Decadron - Dexamethasone 10 mg Route: IVP; Site: right antecubital; kb3 20:15 Follow up: Response: No adverse reaction as6 19:22 Drug: Ketorolac 30 mg Route: IVP; Site: right antecubital; kb3 20:15 Follow up: Response: No adverse reaction as6 19:25 Drug: Reglan (metoCLOPramide) 20 mg Route: IVP; Site: right antecubital; kb3 20:15 Follow up: Response: No adverse reaction as6 19:25 Drug: NS 0.9% 250 ml Route: IV; Rate: bolus; Site: right antecubital; kb3 20:16 Follow up: Response: No adverse reaction; IV Status: Completed infusion; IV Intake: as6 250ml Disposition: 10/16 04:43 Co-signature as Attending Physician, Atif Gomes DO I was immediately available on-site ms3 in the Emergency Department for consultation in the care of the patient.. Disposition Summary: 10/15/21 20:00 Discharge Ordered Location: Home jmm Condition: Stable jmm Diagnosis - Headache jmm Followup: jmm - With: Hamzah Rosenthal MD - When: 2 - 3 days - Reason: Recheck today's complaints, Continuance of care, Re-evaluation by your physician Followup: jmm - With: Daniel Chan MD - When: 2 - 3 days - Reason: Recheck today's complaints, Continuance of care, Re-evaluation by your physician Discharge Instructions: - Discharge Summary Sheet jmm - General Headache Without Cause jmm Forms: - Medication Reconciliation Form jmm - Thank You Letter jmm - Antibiotic Education jmm - Prescription Opioid Use jm Signatures: Dispatcher [employer] EDMS Brad Varela PA PA jmm Shirlene Wiggins RN RN Atif Gomes DO DO ms3 Jennifer Dowd RN RN kb3 Sanchez Taveras RN as6 Corrections: (The following items were deleted from the chart) 10/15 18:45 18:44 PMHx: blood cancer, pending biopsy; hb hb 18:51 18:50 NS 0.9% 500 ml IV at bolus once ordered. jmm jmm
--- NOTE | 2021-10-15 20:01 | ER ---
Nurse's Notes [facility] Name: Lupe Yeager Age: 31 yrs Sex: Female : 1990 Arrival Date: 10/15/2021 Time: 18:38 Bed 26 Private MD: Diagnosis: Headache Presentation: 10/15 18:42 Chief complaint: Worsening intermittent headache and nausea x 2 weeks. Coronavirus hb screen: At this time, the client does not indicate any symptoms associated with coronavirus-19. Ebola Screen: No symptoms or risks identified at this time. Initial Sepsis Screen: Does the patient meet any 2 criteria? No. Patient's initial sepsis screen is negative. Does the patient have a suspected source of infection? No. Patient's initial sepsis screen is negative. Risk Assessment: Do you want to hurt yourself or someone else? Patient reports no desire to harm self or others. Onset of symptoms was October 03, 2021. 18:42 Method Of Arrival: Ambulatory hb 18:42 Acuity: NORMA 3 hb Historical: - Allergies: 18:44 Benadryl; hb - Home Meds: 18:44 Januvia Oral [Active]; levothyroxine 25 mcg tab 1 tab once daily [Active]; lisinopril hb 20 mg Oral tab 1 tab once daily [Active]; - PMHx: 18:44 Diabetes - NIDDM; High Cholesterol; Hypertension; Hypothyroidism; liver disease hb (autoimmune); Polycythemia Vera; - PSHx: 18:44 section; Ligation of fallopian tube; liver biopsy; hb - Immunization history:: Adult Immunizations up to date. - Social history:: Smoking status: Patient denies any tobacco usage or history of. Screenin:16 Abuse screen: Denies threats or abuse. Denies injuries from another. Nutritional as6 screening: No deficits noted. Tuberculosis screening: No symptoms or risk factors identified. Fall Risk None identified. Assessment: 20:17 General: Appears in no apparent distress. Behavior is calm, cooperative. Pain: as6 Complains of pain in head. Neuro: Level of Consciousness is awake, alert, Reports headache. Respiratory: Respiratory effort is even, unlabored. Vital Signs: 18:42 BP 158 / 90; Pulse 88; Resp 16; Temp 98.1(O); Pulse Ox 99% on R/A; Weight 99.79 kg; hb Height 5 ft. (152.40 cm); Pain 8/10; 20:16 BP 123 / 66; Pulse 72; Resp 18 S; Pulse Ox 94% on R/A; Pain 5/10; as6 18:42 Body Mass Index 42.97 (99.79 kg, 152.40 cm) hb ED Course: 18:38 Patient arrived in ED. mr 18:44 Triage completed. hb 18:44 Arm band placed on left wrist. hb 18:46 Brad Varela PA is PHCP. m 18:46 Atif Gomes DO is Attending Physician. jmm 19:11 Jennifer Dowd, RN is Primary Nurse. kb3 19:[address] via wheelchair. kb3 19:29 No provider procedures requiring assistance completed. Inserted saline lock: 20 gauge kb3 in right antecubital area, using aseptic technique. 19:32 CT Head Brain wo Cont In Process Unspecified. EDMS 20:00 Hamzah Rosenthal MD is Referral Physician. jmm 20:02 Daniel Chan MD is Referral Physician. jmm 20:16 Bed in low position. Call light in reach. Side rails up X 1. Pulse ox on. NIBP on. as6 20:18 IV discontinued, intact, bleeding controlled, No redness/swelling at site. Pressure as6 dressing applied. Administered Medications: 18:51 CANCELLED (Duplicate Order): NS 0.9% 500 ml IV at bolus once jmm 19:21 Drug: Decadron - Dexamethasone 10 mg Route: IVP; Site: right antecubital; kb3 20:15 Follow up: Response: No adverse reaction as6 19:22 Drug: Ketorolac 30 mg Route: IVP; Site: right antecubital; kb3 20:15 Follow up: Response: No adverse reaction as6 19:25 Drug: Reglan (metoCLOPramide) 20 mg Route: IVP; Site: right antecubital; kb3 20:15 Follow up: Response: No adverse reaction as6 19:25 Drug: NS 0.9% 250 ml Route: IV; Rate: bolus; Site: right antecubital; kb3 20:16 Follow up: Response: No adverse reaction; IV Status: Completed infusion; IV Intake: as6 250ml Medication: 20:16 VIS not applicable for this client. as6 Intake: 20:16 IV: 250ml; Total: 250ml. as6 Outcome: 20:00 Discharge ordered by . juve 20:17 Discharged to home ambulatory, with family. as6 20:17 Condition: stable 20:17 Discharge instructions given to patient, Instructed on discharge instructions, follow up and referral plans. Demonstrated understanding of instructions, follow-up care. 20:18 Patient left the ED. as6 Signatures: Dispatcher [employer] EDMS Brad Varela PA PA jmm Rivera, Mary mr Shirlene Wiggins, RN RN hb Sanchez Taveras RN RN as6 Jennifer Dowd, RN RN kb3 Corrections: (The following items were deleted from the chart) 18:45 18:44 PMHx: blood cancer, pending biopsy; hb hb
[2021-10-15 21:30] VITALS: TEMP 98.1
[2021-10-15 21:32] VITALS: BP 123/66; O2SAT 94
== END 2021-10-15 20:18 | disposition home or self-care (01) ==
LOC: ER 18:35
DX: R51.9 Headache, unspecified (principal); E11.9 Type 2 diabetes mellitus without complications; I10 Essential (primary) hypertension; Z88.8 Allergy status to other drugs, medicaments and biological substances
CPT/HCPCS: 96365; 70450; 96375; 99284; J2765; J1100; J7050

== ENCOUNTER 2021-11-14 07:48 | Emergency (ER) | payer OTHER ==
--- OUTSIDE RECORDS SUMMARY | 2021-11-14 07:51 | XMS REPORT | Continuity of Care Document ---
:1990 Author Organization [facility] t Address [address] [place] [address] Care Team Providers Name Role Phone Abilio ROMERO, Esperanza Miller Primary Care Physician [phone] RADHA DELGADILLO Attending Clinician Unavailable MYLES COSTELLO Attending Clinician Unavailable Esperanza Knox MD Attending Clinician [phone] Payers Payer Name Policy Type Policy Number Effective Date Expiration Date 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 8 it y of c c 00:00: [place] thrombocyt thrombocyt 00 Me dical hemia hemia Branch ETHAN ETHAN Disease Active Univers (obstructi (obstructi [...] SILVA SILVA Disease Active Univers (nonalcoho (nonalcoho -09 it y of lic lic 00:00: [place] [...] Start Date Stop Date Quantity Comments Source Alcohol intake 2021-10-30 2021-10-30 Ex-drinker [facility] 00:00:00 00:00:00 (finding) [facility] Exposure to 2021-10-18 2021-10-28 Not sure [facility] SARS-CoV-2 00:00:00 11:01:00 [facility] (event) Branch Tobacco use and 2016-12-15 2016-12-15 Smokeless tobacco Un iversity of exposure 00:00:00 00:00:00 non-user [facility] Sex Ass[birth year] At [birth year] Universit y of 00:00:00 00:00:00 [facility] Smoking Status Start Date Stop Date Source Never smoked tobacco [facility] Medications Ordered Filled Start Stop Current Ordering Indication Dosage Frequency Signature Comments Components Source Medication Medication Date Date Medication? Clinician (SIG) Name Name cariprazine 2021- No 1.5mg Take 1.5 Univers (VRAYLAR) 8-26 08-26 mg by ity of 1.5 mg Cap 11:56: 00:00 mouth [place] 30 :00 daily. Medical Branch SUMAtriptan Yes [id number] Take 1 Univers 50 mg 8-26 tablet at ity of tablet 00:00: the start 00 of the Medical migraine, Branch may repeat dose after 2 hours. Max of 2 tablets in 1 day. semaglutide 2021-0 Yes [id number] Take Un jaquelin (OZEMPIC) 8-26 0.25mg ity of 0.25 mg or 00:00: once a [place] 0.5 mg(2 week x 1 Medical mg/1.5 mL) month, Branch PnIj then increase to 0.5mg once a week SUMAtriptan 2021-0 Yes [id number] Take 1 Univers 50 mg 8-26 tablet at ity of tablet 00:00: the start of the Medical migraine, Branch may repeat dose after 2 hours. Max of 2 tablets in 1 day. semaglutide 2021-0 Yes [id number] Take Un jaquelin (OZEMPIC) 8-26 0.25mg ity of 0.25 mg or 00:00: once a [place] 0.5 mg( week x 1 Medical mg/1.5 mL) month, Branch PnIj then increase to 0.5mg once a week SUMAtriptan 2021-0 Yes [id number] Take 1 Univers 50 mg 8-26 tablet at ity of tablet 00:00: the start of the Medical migraine, Branch may repeat dose after 2 hours. Max of 2 tablets in 1 day. semaglutide 2021-0 Yes [id number] Take Un jaquelin (OZEMPIC) 8-26 0.25mg ity of 0.25 mg or 00:00: once a [place] 0.5 mg( week x 1 Medical mg/1.5 mL) month, Branch PnIj then increase to 0.5mg once a week CONCERTA 54 2021-0 Yes 54mg Take 54 mg Univers mg 24 hr 8-22 by mouth ity of tablet 00:00: every [place] 00 morning. Medical Branch CONCERTA 54 2021-0 Yes 54mg Take 54 mg Univers mg 24 hr 8-22 by mouth ity of tablet 00:00: every [place] 00 morning. Medical Branch CONCERTA 54 2021-0 Yes 54mg Take 54 mg Univers mg 24 hr 8-22 by mouth ity of tablet 00:00: every [place] 00 morning. Medical Branch VRAYLAR 3 2021-0 Yes Univers mg Cap 8-17 ity of 00:00: 00 Medical Branch FLUoxetine 2021-0 Yes Univers 40 mg 8-17 ity of capsule 00:00: [place] 00 Medical Branch zolpidem 0 Yes TAKE 1 Univers 12.5 mg CR 8-17 TABLET BY ity of tablet 00:00: MOUTH AT [place] 00 BEDTIME Medical NEEDED Branch VRAYLAR 3 0 Yes Univers mg Cap 8-17 ity of 00:00: [place] 00 Medical Branch FLUoxetine 2021-0 Yes Univers 40 mg 8-17 ity of capsule 00:00: [place] 00 Medical Branch zolpidem 0 Yes TAKE 1 Univers 12.5 mg CR 8-17 TABLET BY ity of tablet 00:00: MOUTH AT [place] 00 BEDTIME Medical NEEDED Branch VRAYLAR 3 0 Yes Univers mg Cap 8-17 ity of 00:00: [place] 00 Medical Branch FLUoxetine 2021-0 Yes Univers 40 mg 8-17 ity of capsule 00:00: [place] 00 Medical Branch zolpidem 0 Yes TAKE 1 Univers 12.5 mg CR 8-17 TABLET BY ity of tablet 00:00: MOUTH AT [place] 00 BEDTIME Medical NEEDED Branch lisinopriL Yes [id number] 20mg Take 1 U nivers 20 mg 8-09 tablet by ity of tablet 00:00: mouth in [place] 00 the Medical morning. Branch pioglitazon Yes [id number] 15mg Take 1 Univers e 15 mg 8-09 tablet by ity of tablet 00:00: mouth in [place] the Medical morning. Branch lisinopriL 0 Yes [id number] 20mg Take 1 U nivers 20 mg 8-09 tablet by ity of tablet 00:00: mouth in [place] the Medical morning. Branch pioglitazon 0 Yes [id number] 15mg Take 1 Univers e 15 mg 8-09 tablet by ity of tablet 00:00: mouth in [place] 00 the Medical morning. Branch lisinopriL 0 Yes [id number] 20mg Take 1 U nivers 20 mg 8-09 tablet by ity of tablet 00:00: mouth in [place] 00 the Medical morning. Branch pioglitazon 0 Yes [id number] 15mg Take 1 Univers e 15 mg 8-09 tablet by ity of tablet 00:00: mouth in [place] 00 the Medical morning. Branch SITagliptin 2021-0 2021- No [id number] 100mg Take 1 Univers (JANUVIA) 10-11- tablet by ity of 100 mg 00:00: 00:00 mouth [place] tablet 00 :00 every Medical morning. Branch ondansetron 2021- No [id number] 4mg Take 1 Univers 4 mg 09-23 tablet by ity of disintegrat 00:00: 00:00 [place] tablet 00 :00 every 8 Medica l (eight) Branch hours as needed for Nausea and Vomiting (N/V). Cyanocobala Yes [id number] 1000ug Take 1 Univers min 1,000 3-25 tablet by ity o f mcg tablet 00:00: mouth [place] 00 daily. Medical Branch Cyanocobala Yes [id number] 1000ug Take 1 Univers min 1,000 3-25 tablet by ity o f mcg tablet 00:00: mouth [place] 00 daily. Medical Branch Cyanocobala Yes [id number] 1000ug Take 1 Univers min 1,000 3-25 tablet by ity o f mcg tablet 00:00: mouth [place] 00 daily. Medical Branch CONCERTA 36 2021- No 1{tbl} Take 1 U nivers mg 24 hr 2-24 - tablet by ity o f tablet 00:00: 00:00 mouth [place] 00 :00 daily. Medical Branch tiZANidine 2020-03- No [id number] 4mg Take 1 Univers 4 mg tablet 0- tablet by it y of 00:00: 00:00 mouth [place] 00 :00 every 8 Medical (eight) Branch hours as needed for Pain (scale 7-10). levothyroxi 2020-03 Yes 100ug Take 1 Uni [...] mcg 00 every Medical tablet morning. Branch FLUoxetine Yes Univers 20 mg 8-31 ity of capsule 00:00: [place] 00 Medical Branch FLUoxetine 2020-0 Yes Univers 20 mg 8-31 ity of capsule 00:00: Medical Branch FLUoxetine 2020-0 Yes Univers 20 mg 8-31 ity of capsule 00:00: Medical Branch zolpidem 5 2020-0 2- No [id number] 5mg Take 1 U nivers mg tablet 07-19 tablet by ity of 00:00: 00:00 mouth at [place] 00 :00 bedtime as Medical needed for Branch Insomnia. Immunizations Ordered Filled Immunization Date Status Comments [facility] e Immunization Name Name SARS-COV-2 COVID-19 2021-05-27 Completed Unive rsity of PFIZER CHRIS-SUCROSE 00:00:00 [place] Medical VACCINE (MEADOWS TOP) Branch SARS-COV-2 COVID-19 2021-05-27 Completed Unive rsity of PFIZER CHRIS-SUCROSE 00:00:00 [place] Medical VACCINE (MEADOWS TOP) Branch SARS-COV-2 COVID-19 2021-05-27 Completed Unive rsity of PFIZER CHRIS-SUCROSE 00:00:00 [place] Medical VACCINE (MEADOWS TOP) Branch SARS-COV-2 COVID-19 2020-12-09 Completed Unive rsity of PFIZER VACCINE 00:00:00 [facility] SARS-COV-2 COVID-19 2020-12-09 Completed Unive rsity of PFIZER VACCINE 00:00:00 [facility] SARS-COV-2 COVID-19 2020-12-09 Completed Unive rsity of PFIZER VACCINE 00:00:00 [facility] SARS-COV-2 COVID-19 2020-11-17 Completed Unive rsity of PFIZER VACCINE 00:00:00 [facility] SARS-COV-2 COVID-19 2020-11-17 Completed Unive rsity of PFIZER VACCINE 00:00:00 [facility] SARS-COV-2 COVID-19 2020-11-17 Completed Unive rsity of PFIZER VACCINE 00:00:00 [facility] Td 2019-09-03 Completed University 00:00:00 [facility] Td 2019-09-03 Completed University 00:00:00 [facility] Td 2019-09-03 Completed University 00:00:00 [facility] Twinrix (hep a/hep 2018-05-03 Completed Univer sity of b) 00:00:00 [facility] Twinrix (hep a/hep 2018-05-03 Completed Univer sity of b) 00:00:00 [facility] Twinrix (hep a/hep 2018-05-03 Completed Univer sity of b) 00:00:00 [facility] Twinrix (hep a/hep 2017-12-03 Completed Univer sity of b) 00:00:00 [facility] Twinrix (hep a/hep 2017-12-03 Completed Univer sity of b) 00:00:00 [facility] Twinrix (hep a/hep 2017-12-03 Completed Univer sity of b) 00:00:00 [facility] Twinrix (hep a/hep 2017-11-02 Completed Univer sity of b) 00:00:00 [facility] Twinrix (hep a/hep 2017-11-02 Completed Univer sity of b) 00:00:00 [facility] Twinrix (hep a/hep 2017-11-02 Completed Univer sity of b) 00:00:00 [facility] Vital Signs Vital Name Observation Time Observation Value Comments Source Systolic blood 2021-10-28 16:25:00 122 mm[Hg] Univer sity of pressure [facility] Diastolic blood 2021-10-28 16:25:00 79 mm[Hg] Unive rsity of pressure [facility] Heart rate 2021-10-28 16:25:00 79 /min [facility] Body temperature 2021-10-28 16:25:00 36.72 [facility] Body height 2021-10-28 16:25:00 149.9 cm [facility] Body weight 2021-10-28 16:25:00 100.653 kg [facility] BMI 2021-10-28 16:25:00 44.82 kg/m2 [facility] Oxygen saturation in 2021-10-28 16:25:00 100 /min [facility] Arterial blood by [facility] Pulse oximetry Branch Procedures Procedure Date / Time Performed Performing Clinician Evan e POCT HEMOGLOBIN A1C 2021-10-28 00:00:00 Radha Delgadillo [facility] Encounters Start End Encounter Admission Attending Care Care Encounter Source Date/Time Date/Time Type Type Clinicians Facility Department ID 2022-01-30 2022-01-30 Outpatient R ELIE [facility] [id number] Univers 10:30:00 10:30:00 RADHA anderson [facility] 2021-11-14 2021-11-14 Outpatient Blue COSTELLO [facility] [id number] Univers 11:30:00 11:30:00 RUIQING teresa [facility] 2021-11-08 2021-11-08 [facility] [id number] Univers 00:00:00 00:00:00 Esperanza MULTISPEC [id number] ity of [place] [id number] [id number] [address] [facility] 2021-11-06 2021-11-06 [facility] [id number] Univers 00:00:00 00:00:00 Esperanza MULTISPEC [id number] [id number] [id number] [facility] AND [address] [facility] 2021-10-28 2021-10-28 Office [facility] [id number] Univers 11:30:00 12:21:19 Visit Radha No MULTISPEC [id number] [id number] [id number] [address] [facility] 2021-10-28 2021-10-28 Outpatient Blue DELGADILLO [facility] [id number] Univers 11:30:00 12:21:19 RADHA [facility] Results Test Description Test Time Test Comments Results Result Comments Source POCT HEMOGLOBIN A1C TEST 2021-10-28 17:10:00 Test Item Value Reference Range Interpretation Comme nts POCT HBA1C (test code = 4548-4) 7.5 % 4-6 A Lab Interpretation (test code = 67032-0) Abnormal [facility]
--- NOTE | 2021-11-14 08:02 | EDPHYS ---
Physician Documentation [facility] Name: Lupe Yeager Age: 31 yrs Sex: Female : 1990 Arrival Date: 11/14/2021 Time: 07:49 Bed 5 Private MD: ED Physician Aubrey Jaime HPI: 11/14 08:06 This 31 yrs old Female presents to ER via Ambulatory with complaints of Ear Pain. kb 08:06 The patient presents with pain. The complaints affect the left ear. Onset: The kb symptoms/episode began/occurred this morning. Modifying factors: The symptoms are alleviated by nothing, the symptoms are aggravated by nothing. Associated signs and symptoms: Pertinent positives: cough, rhinorrhea, Pertinent negatives: fever. Severity of symptoms: At their worst the symptoms were moderate in the emergency department the symptoms are unchanged. The patient has not experienced similar symptoms in the past. The patient has not recently seen a physician. Pt reports cough and congestion for 5 days. Woke up today with ear pain. . 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 - Social history:: Smoking status: Patient denies any tobacco usage or history of. ROS: 08:03 Constitutional: Negative for fever, chills, and weight loss. kb 08:03 ENT: Positive for ear pain, rhinorrhea, sinus congestion. 08:03 All other systems are negative. 08:05 Respiratory: Positive for cough. kb Exam: 08:03 Constitutional: This is a well developed, well nourished patient who is awake, alert, kb and in no acute distress. Head/Face: Normocephalic, atraumatic. Cardiovascular: Regular rate and rhythm with a normal S1 and S2. No gallops, murmurs, or rubs. No pulse deficits. Respiratory: Respirations even and unlabored. No increased work of breathing. Talking in full sentences Skin: Warm, dry with normal turgor. Normal color. MS/ Extremity: Pulses equal, no cyanosis. Neurovascular intact. Full, normal range of motion. Neuro: Awake and alert, GCS 15, oriented to person, place, time, and situation. Moves all extremities. Normal gait. Psych: Awake, alert, with orientation to person, place and time. Behavior, mood, and affect are within normal limits. 08:03 ENT: External ear(s): are unremarkable, Ear canal(s): erythema, that is minimal, of the left canal, TM's: bulging, on the left, erythema, that is moderate, on the left. 08:03 Respiratory: Breath sounds: are clear throughout. Vital Signs: 08:02 BP 152 / 99; Pulse 72; Resp 16; Temp 97.9(TE); Pulse Ox 99% on R/A; Weight 97.52 kg; iw Height 4 ft. 11 in. (149.86 cm); 08:02 Body Mass Index 43.42 (97.52 kg, 149.86 cm) iw MDM: 07:58 Patient medically screened. kb 08:05 Data reviewed: vital signs, nurses notes. Data interpreted: Pulse oximetry: on room air kb is 99 %. Interpretation: normal. Counseling: I had a detailed discussion with the patient and/or guardian regarding: the historical points, exam findings, and any diagnostic results supporting the discharge/admit diagnosis, the need for outpatient follow up, a family practitioner, to return to the emergency department if symptoms worsen or persist or if there are any questions or concerns that arise at home. 11/14 08:02 Order name: EKG - Nurse/Tech; Complete Time: 08:02 jg9 Administered Medications: 08:14 Drug: Tylenol 1000 mg Route: PO; jg9 08:15 Follow up: Response: Medication administered at discharge. jg9 08:14 Drug: Ibuprofen 600 mg {Note: 10/10 left ear pain.} Route: PO; jg9 08:15 Follow up: Response: Medication administered at discharge. jg9 08:14 Drug: Augmentin (Amoxicillin-Clavulanate) 875 mg Route: PO; jg9 08:14 Follow up: Response: Medication administered at discharge. jg9 Disposition Summary: 11/14/21 08:02 Discharge Ordered Location: Home kb Condition: Stable kb Diagnosis - Otitis media, unspecified, left ear kb Followup: kb - With: Emergency Department - When: As needed - Reason: Worsening of condition Followup: kb - With: Private Physician - When: 2 - 3 days - Reason: Recheck today's complaints, Continuance of care, Re-evaluation by your physician Discharge Instructions: - Discharge Summary Sheet kb - Otitis Media, Adult, [id number] kb Forms: - Medication Reconciliation Form kb - Thank You Letter kb - Antibiotic Education kb - Prescription Opioid Use kb Prescriptions: - Amoxicillin 875 mg Oral Tablet - take 1 tablet by ORAL route every 12 hours for 10 days; 20 tablet; Refills: 0, kb Product Selection Permitted Signatures: Lashay Rivera, DEVELOPMENT ARCHITECT-C DEVELOPMENT ARCHITECT-Halle Mcdonald, RN RN iw Brigida Burton, RN RN jg9 Corrections: (The following items were deleted from the chart) 08:05 08:03 ENT: Positive for ear pain, kb kb
--- NOTE | 2021-11-14 08:02 | ER ---
Nurse's Notes [facility] Name: Lupe Yeager Age: 31 yrs Sex: Female : 1990 Arrival Date: 11/14/2021 Time: 07:49 Bed 5 Private MD: Diagnosis: Otitis media, unspecified, left ear Presentation: 11/14 08:00 Chief complaint: Patient states: left ear pain since this morning , has had a cold for iw past 5 days. Coronavirus screen: At this time, the client does not indicate any symptoms associated with coronavirus-19. Ebola Screen: Patient negative for fever greater than or equal to 101.5 degrees Fahrenheit, and additional compatible Ebola Virus Disease symptoms Patient denies exposure to infectious person. Patient denies travel to an Ebola-affected area in the 21 days before illness onset. No symptoms or risks identified at this time. Initial Sepsis Screen: Does the patient meet any 2 criteria? No. Patient's initial sepsis screen is negative. Does the patient have a suspected source of infection? No. Patient's initial sepsis screen is negative. Risk Assessment: Do you want to hurt yourself or someone else? Patient reports no desire to harm self or others. Onset of symptoms was November 14, 2021. 08:00 Method Of Arrival: Ambulatory iw 08:00 Acuity: NORMA 4 iw Triage Assessment: 08:05 General: Appears uncomfortable, Behavior is crying. Pain: Complains of pain in left ear jg9 Pain currently is 10 out of 10 on a pain scale. EENT: Reports pain in left ear. 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 - Social history:: Smoking status: Patient denies any tobacco usage or history of. Screenin:15 Abuse screen: Denies threats or abuse. Denies injuries from another. Nutritional jg9 screening: No deficits noted. Tuberculosis screening: No symptoms or risk factors identified. Fall Risk None identified. Assessment: 08:06 Reassessment: EKG charted on incorrect patient unable to delete from orders. jg9 Vital Signs: 08:02 BP 152 / 99; Pulse 72; Resp 16; Temp 97.9(TE); Pulse Ox 99% on R/A; Weight 97.52 kg; iw Height 4 ft. 11 in. (149.86 cm); 08:02 Body Mass Index 43.42 (97.52 kg, 149.86 cm) ED Course: 07:49 Patient arrived in ED. rg4 07:58 Lashay Rivera FNP-C is [facility]. kb 07:58 Aubrey Jaime MD is Attending Physician. kb 07:58 Brigida Burton, RN is Primary Nurse. jg9 08:01 Triage completed. iw 08:01 Arm band placed on. iw 08:05 Patient has correct armband on for positive identification. Bed in low position. Call jg9 light in reach. 08:16 No provider procedures requiring assistance completed. jg9 08:16 Patient did not have IV access during this emergency room visit. jg9 Administered Medications: 08:14 Drug: Tylenol 1000 mg Route: PO; jg9 08:15 Follow up: Response: Medication administered at discharge. jg9 08:14 Drug: Ibuprofen 600 mg {Note: 10/10 left ear pain.} Route: PO; jg9 08:15 Follow up: Response: Medication administered at discharge. jg9 08:14 Drug: Augmentin (Amoxicillin-Clavulanate) 875 mg Route: PO; jg9 08:14 Follow up: Response: Medication administered at discharge. jg9 Medication: 08:17 VIS not applicable for this client. jg9 Outcome: 08:02 Discharge ordered by . kb 08:16 Discharged to home ambulatory. jg9 08:16 Condition: unchanged 08:16 Discharge instructions given to patient, Instructed on discharge instructions, follow up and referral plans. Demonstrated understanding of instructions, follow-up care, Prescriptions given X 1. 08:17 Patient left the ED. jg9 Signatures: Lashay Rivera FNP-C FNP-Halle Mcdonald RN RN iw Garcia, Rubi rg4 Brigida Burton, CHRISTIANO RN jg9 Corrections: (The following items were deleted from the chart) 08:03 08:02 BP 152 / 99; Pulse 72bpm; Resp 16bpm; Pulse Ox 99% RA; iw iw 08:10 08:02 BP 152 / 99; Pulse 72bpm; Resp 16bpm; Pulse Ox 99% RA; 97.52 kg; Height 4 ft. 11 iw in.; BMI: 43.4; iw
[2021-11-14] MEDS ORDERED: IBUPROFEN 200 MG TAB PO ONE (08:18)
[2021-11-14] MEDS ORDERED: ACETAMINOPHEN 500 MG TAB ONE (08:18)
[2021-11-14] MEDS ORDERED: IBUPROFEN 400 MG TAB ONE (08:18)
[2021-11-14] MEDS ORDERED: AMOX/K CLAV 875 MG TAB ONE (08:18)
[2021-11-14 08:28] VITALS: BP 152/99; TEMP 97.9; O2SAT 99
== END 2021-11-14 08:17 | disposition home or self-care (01) ==
LOC: ER 07:48
DX: H66.92 Otitis media, unspecified, left ear (principal); E11.9 Type 2 diabetes mellitus without complications; I10 Essential (primary) hypertension; Z88.8 Allergy status to other drugs, medicaments and biological substances
CPT/HCPCS: 99283